=== PATIENT | male | born 1985 | race Two or more races ===

== ENCOUNTER 2016-02-07 23:19 | Emergency (ER) | payer SELFPAY ==
[2016-02-08] MEDS ORDERED: ALBUTEROL SULFATE HFA (90 MCG/PUFF) 8 GM MDI (1 MDI/ER DISP) IH ONE (03:39)
--- NOTE | 2016-02-08 03:42 | ER Document Report ---
HPI - HPI Patient complains to provider of: wheezing Pain Level: 0 Context: Patient is a 22-year-old asthmatic smoker that comes emergency department for chief complaint of wheezing earlier today. Patient states that he feels fine now but he left his inhaler and [place] before coming here, states his stay here tonight and going back tomorrow, states he needs an inhaler until that time. Patient denies fever, cough, or any other concerns. Patient denies any other history. - CARDIOVASCULAR Cardiovascular: DENIES: Chest pain - RESPIRATORY Respiratory: REPORTS: Trouble Breathing - DERM Skin Color: Normal, [place] Skin Problems: None - NURSING COMMENTS Comment: pt to ed today for SOB, pt states it started around 1999, pt states he left his inhaler at home and is staying in a hotel at this time and needs an inhaler, pt is a&o x4, pleasant and cooperative with all care, respirations e/u , speech clear, color appropriate, nad, vss Past Medical History - General Information source: Patient - Social History Smoking Status: Current Every Day Smoker Cigarette use (# per day): Yes Chew tobacco use (# tins/day): No Smoking Education Provided: Yes - <3 min Frequency of alcohol use: None Drug Abuse: None Lives with: Alone Family History: Reviewed & Not Pertinent - Past Medical History Cardiac Medical History: Denies: Hx Coronary Artery Disease, Hx Hypertension, Hx Pulmonary Embolism Pulmonary Medical History: Reports: Hx Asthma, Hx Bronchitis, Hx Pneumonia Denies: Hx Respiratory Failure, Hx Sleep Apnea, Hx Tuberculosis Endocrine Medical History: Denies: Hx Diabetes Mellitus Type 1, Hx Diabetes Mellitus Type 2 Malignancy Medical History: Denies Hx Lung Cancer Psychiatric Medical History: Reports: Hx Attention Deficit Hyperactivity Disorder Denies: Hx Anxiety, Hx Bipolar Disorder, Hx Depression, Hx Schizophrenia Past Surgical History: Reports: Hx Tonsillectomy. Denies: Hx Pacemaker - Immunizations Immunizations up to date: Yes Hx Diphtheria, Pertussis, Tetanus Vaccination: Yes Vertical Provider Document - CONSTITUTIONAL General Appearance: WD/WN, No Apparent Distress - INFECTION CONTROL TRAVEL OUTSIDE OF THE [place] IN LAST 30 DAYS: No - HEENT HEENT: Atraumatic, Normal ENT Exam - NECK Neck: Normal Inspection - RESPIRATORY Respiratory: Breath Sounds Normal, No Respiratory Distress O2 Sat by Pulse Oximetry: 98 - CARDIOVASCULAR Cardiovascular: Regular Rate, Regular Rhythm - GI/ABDOMEN Gastrointestinal: Abdomen Soft, Abdomen Non-Tender - BACK Back: Normal Inspection - MUSCULOSKELETAL/EXTREMETIES Musculoskeletal/Extremeties: MAEW, FROM, Non-Tender - NEURO Level of Consciousness: Awake, Alert, Appropriate - DERM Integumentary: Warm, Dry, No Rash Course - Re-evaluation Re-evalutation: Completely normal exam. Normal vital signs. Patient recently received a prescription from this department for albuterol inhaler. Patient given small limited dose inhaler at discharge. Discussed smoking cessation, patient states he understands he needs to quit and he will try. - Vital Signs Vital signs: Temp Pulse Resp BP Pulse Ox 97.8 F 81 12 131/71 H 98 02/07/16 23:35 02/07/16 23:35 02/07/16 23:35 02/07/16 23:35 02/07/16 23:35 Discharge - Discharge Clinical Impression: Asthma Qualifiers: Asthma severity: unspecified severity Asthma complication type: uncomplicated Qualified Code(s): J45.909 - Unspecified asthma, uncomplicated Condition: Stable Disposition: HOME, SELF-CARE Additional Instructions: Fill the prescribed albuterol inhaler prescription that you were given recently. Stop smoking. Return to emergency department for difficulty breathing, wheezing, fevers, or any other concerning symptoms. Forms: Smoking Cessation Education
[2016-02-08 03:59] VITALS: BP 117/60
== END 2016-02-08 03:59 | disposition home or self-care (01) ==
LOC: ER 23:19
DX: J45.909 Unspecified asthma, uncomplicated (principal); R06.02 Shortness of breath; F17.210 Nicotine dependence, cigarettes, uncomplicated; Z71.6 Tobacco abuse counseling; Z87.01 Personal history of pneumonia (recurrent)
CPT/HCPCS: 99284; J3490

== ENCOUNTER 2016-02-10 21:47 | Emergency (ER) | payer SELFPAY | END 2016-02-10 22:43 | disposition left against medical advice (07) | LOC: ER 21:47 | DX: Z53.21 Procedure and treatment not carried out due to patient leaving prior to being seen by health care provider (principal) ==

== ENCOUNTER 2016-02-11 00:33 | Emergency (ER) | payer SELFPAY ==
[2016-02-11 01:20] VITALS: BP 130/72
[2016-02-11 04:42] LABS: APPEARANCE,URINE CLEAR; BILIRUBIN,URINE NEGATIVE (NEGATIVE); GLUCOSE, URINE NEGATIVE (NEGATIVE); KETONES,URINE NEGATIVE (NEGATIVE); LEUKOCYTE ESTERASE,URINE NEGATIVE (NEGATIVE); NITRITE,URINE NEGATIVE (NEGATIVE); PROTEIN,URINE NEGATIVE (NEGATIVE); URINE SPECIFIC GRAVITY 1.015; UROBILINOGEN,URINE NEGATIVE mg/dL (<2.0)
--- NOTE | 2016-02-11 06:29 | ER Document Report ---
ED General - General Chief Complaint: Nausea Stated Complaint: NAUSEA TRAVEL OUTSIDE OF THE [place] IN LAST 30 DAYS: No - HPI Patient complains to provider of: nausea Onset: Other - 2-3 days Onset/Duration: Gradual Quality of pain: No pain Severity: None Associated symptoms: None Exacerbated by: Denies Relieved by: Denies Similar symptoms previously: No Recently seen / treated by doctor: No Notes: Patient coming in for evaluation of nausea. Patient also states that he is having a bowel issue. Patient states when he states sometimes the food comes alcohol and his stools very loose and watery. Patient denies diarrhea. Patient states is been ongoing for quite some time. States nausea last to 3 days. No fevers and chills no recent travel no recent antibiotics - Related Data Allergies/Adverse Reactions: poison veronica extract [Poison Veronica Extract] Allergy (Verified 02/02/16 13:47) poison oak extract [Poison [place] Extract] Allergy (Verified 02/02/16 13:47) Past Medical History - Social History Smoking Status: Current Every Day Smoker Chew tobacco use (# tins/day): No Frequency of alcohol use: None Drug Abuse: None Family History: Reviewed & Not Pertinent Patient has suicidal ideation: No Patient has homicidal ideation: No - Past Medical History Cardiac Medical History: Denies: Hx Coronary Artery Disease, Hx Hypertension, Hx Pulmonary Embolism Pulmonary Medical History: Reports: Hx Asthma, Hx Bronchitis, Hx COPD, Hx Pneumonia Denies: Hx Respiratory Failure, Hx Sleep Apnea, Hx Tuberculosis Endocrine Medical History: Denies: Hx Diabetes Mellitus Type 1, Hx Diabetes Mellitus Type 2 Malignancy Medical History: Denies Hx Lung Cancer Psychiatric Medical History: Reports: Hx Attention Deficit Hyperactivity Disorder Denies: Hx Anxiety, Hx Bipolar Disorder, Hx Depression, Hx Schizophrenia Past Surgical History: Reports: Hx Tonsillectomy. Denies: Hx Pacemaker - Immunizations Immunizations up to date: Yes Hx Diphtheria, Pertussis, Tetanus Vaccination: Yes Review of Systems - Review of Systems Constitutional: No symptoms reported EENT: No symptoms reported Cardiovascular: No symptoms reported Respiratory: No symptoms reported Gastrointestinal: Nausea, Other - Bowel complaint Genitourinary: No symptoms reported Male Genitourinary: No symptoms reported Musculoskeletal: No symptoms reported Skin: No symptoms reported Hematologic/Lymphatic: No symptoms reported Neurological/Psychological: No symptoms reported -: Yes All other systems reviewed and negative Physical Exam - Vital signs Vitals: Temp Pulse Resp BP Pulse Ox 98.3 F 92 18 130/72 H 96 02/11/16 01:19 02/11/16 01:19 02/11/16 01:19 02/11/16 01:02/11/16 01:19 Interpretation: Normal - General General appearance: Appears well, Alert - HEENT Head: Normocephalic, Atraumatic Eyes: Normal Pupils: PERRL - Respiratory Respiratory status: No respiratory distress Chest status: Nontender Breath sounds: Normal Chest palpation: Normal - Cardiovascular Rhythm: Regular Heart sounds: Normal auscultation Murmur: No - Abdominal Inspection: Normal Distension: No distension Bowel sounds: Normal Tenderness: Nontender Organomegaly: No organomegaly - Back Back: Normal, Nontender - Extremities General upper extremity: Normal inspection, Nontender, Normal color, Normal ROM , Normal temperature General lower extremity: Normal inspection, Nontender, Normal color, Normal ROM , Normal temperature, Normal weight bearing. No: Kush's sign - Neurological Neuro grossly intact: Yes Cognition: Normal Orientation: AAOx4 Paula Coma Scale Eye Opening: Spontaneous [place]elin Coma Scale Verbal: Oriented Paula Coma Scale Motor: Obeys Commands Paula Coma Scale Total: 15 Speech: Normal Motor strength normal: LUE, RUE, LLE, RLE Sensory: Normal - Psychological Associated symptoms: Normal affect, Normal mood - Skin Skin Temperature: Warm Skin Moisture: Dry Skin Color: Normal Course - Re-evaluation Re-evalutation: 02/11/16 15:21 The patient presents with abdominal pain without signs of peritonitis or other life-threatening or serious etiology. The patient appears stable for discharge and has been instructed to return immediately if the symptoms worsen in any way , or in 8-12hr if not improved for re-evaluation. The patient has been instructed to return if the symptoms worsen or change in any way.. - Vital Signs Vital signs: Temp Pulse Resp BP Pulse Ox 98.3 F 92 18 130/72 H 96 02/11/16 01:19 02/11/16 01:19 02/11/16 01:19 02/11/16 01:19 02/11/16 01:19 Discharge - Discharge Clinical Impression: Nausea, bowel complaints Condition: Good Disposition: HOME, SELF-CARE Instructions: Gastroenteritis (adult) ([facility]) Prescriptions: Ondansetron [Zofran Odt 4 mg Tablet] 1 - 2 tab PO Q4H PRN #15 tab.rapdis PRN Reason: For Nausea/Vomiting
== END 2016-02-11 06:27 | disposition home or self-care (01) ==
LOC: ER 00:33
DX: R11.0 Nausea (principal); R10.9 Unspecified abdominal pain; F17.210 Nicotine dependence, cigarettes, uncomplicated
CPT/HCPCS: 81001; 99283

== ENCOUNTER 2016-02-12 04:59 | Emergency (ER) | payer SELFPAY ==
[2016-02-12] MEDS ORDERED: IBUPROFEN 600 MG TABLET PO ONE (07:21)
--- NOTE | 2016-02-12 07:21 | ER Document Report ---
HPI - HPI Patient complains to provider of: muscle aches Onset: This morning Pain Level: 5 Context: 30-year-old male who admits to being homeless and that's why came to the emergency room he needed a place to sleep and he wanted some Motrin for his muscle pain. He was couch surfing and has not had any place to sleep for the past 2 nights. The review of systems besides generalized so pain is negative. No fever or chills. No sore throat runny nose or cough. No chest pain or shortness of breath. No nausea vomiting or diarrhea. No abdominal pain. No dysuria frequency or urgency. No rash. Associated Symptoms: None Exacerbated by: Denies Relieved by: Denies - ROS ROS below otherwise negative: Yes Systems Reviewed and Negative: Yes All other systems reviewed and negative - CARDIOVASCULAR Cardiovascular: DENIES: Chest pain - DERM Skin Color: Normal Past Medical History - General Information source: Patient - Social History Smoking Status: Current Every Day Smoker Chew tobacco use (# tins/day): No Frequency of alcohol use: None Drug Abuse: None Lives with: Homeless Family History: None Patient has suicidal ideation: No Patient has homicidal ideation: No Pulmonary Medical History: Reports: Hx Asthma, Hx Bronchitis, Hx COPD, Hx Pneumonia Psychiatric Medical History: Reports: Hx Attention Deficit Hyperactivity Disorder Past Surgical History: Reports: Hx Tonsillectomy - Immunizations Immunizations up to date: Yes Hx Diphtheria, Pertussis, Tetanus Vaccination: Yes Vertical Provider Document - CONSTITUTIONAL Agree With Documented VS: Yes Exam Limitations: No Limitations - INFECTION CONTROL TRAVEL OUTSIDE OF THE [place] IN LAST 30 DAYS: No - HEENT HEENT: Normal ENT Exam - NECK Neck: Supple. negative: Lymphadenopathy-Left, Lymphadenopathy-Right - RESPIRATORY Respiratory: Breath Sounds Normal, No Respiratory Distress O2 Sat by Pulse Oximetry: 98 - CARDIOVASCULAR Cardiovascular: Regular Rate, Regular Rhythm - GI/ABDOMEN Gastrointestinal: Abdomen Soft, Abdomen Non-Tender, No Organomegaly - BACK Back: Normal Inspection - MUSCULOSKELETAL/EXTREMETIES Musculoskeletal/Extremeties: SERGIO PEPPER - NEURO Level of Consciousness: Awake, Alert Motor/Sensory: No Motor Deficit, No Sensory Deficit - DERM Integumentary: Warm, Dry Course - Vital Signs Vital signs: Temp Pulse Resp BP Pulse Ox 97.4 F 71 18 116/68 98 02/12/16 05:02 02/12/16 05:02 02/12/16 05:02 02/12/16 05:02 02/12/16 05:02 Discharge - Discharge Clinical Impression: Myalgia Condition: Good Disposition: HOME, SELF-CARE Instructions: Use of Embi-Yga-Rfzzdyk Ibuprofen ([facility]), Myalagia (Muscle Pain) ( [facility]), [facility], Family Physicians / Practices Additional Instructions: return to emergency room if worse referral to homeless [facility] so you have someplace to sleep
[2016-02-12 08:39] VITALS: BP 103/68
== END 2016-02-12 07:50 | disposition home or self-care (01) ==
LOC: ER 04:59
DX: M79.1 Myalgia (principal); Z59.0 Homelessness; F17.200 Nicotine dependence, unspecified, uncomplicated; J45.909 Unspecified asthma, uncomplicated; J44.9 Chronic obstructive pulmonary disease, unspecified
CPT/HCPCS: 99283

== ENCOUNTER 2016-02-16 16:01 | Emergency (ER) | payer SELFPAY ==
--- NOTE | 2016-02-16 16:12 | ER Document Report ---
ED Medical Screen (RME) - General Stated Complaint: SHORTNESS OF BREATH,COUGH Time seen by provider: 16:11 Mode of Arrival: Ambulatory Information source: Patient Notes: 30-year-old male had unprotected intercourse with a female and wants to know if he can get antibiotics. He has no penile discharge or burning. He ran out of his inhaler and he feels like he can't breathe all day. Vital signs are stable in triage. TRAVEL OUTSIDE OF THE [place] IN LAST 30 DAYS: No - Related Data Allergies/Adverse Reactions: poison veronica extract [Poison Veronica Extract] Allergy (Verified 02/12/16 05:02) poison oak extract [Poison [place] Extract] Allergy (Verified 02/12/16 05:02) Past Medical History - Social History Family history: None. denies: CAD - Past Medical History Cardiac Medical History: Denies: Hx Coronary Artery Disease, Hx Hypertension, Hx Pulmonary Embolism Pulmonary Medical History: Reports: Hx Asthma, Hx Bronchitis, Hx COPD, Hx Pneumonia Denies: Hx Respiratory Failure, Hx Sleep Apnea, Hx Tuberculosis Endocrine Medical History: Denies: Hx Diabetes Mellitus Type 1, Hx Diabetes Mellitus Type 2 Malignancy Medical History: Denies Hx Lung Cancer Psychiatric Medical History: Reports: Hx Attention Deficit Hyperactivity Disorder Denies: Hx Anxiety, Hx Bipolar Disorder, Hx Depression, Hx Schizophrenia Past Surgical History: Reports: Hx Tonsillectomy. Denies: Hx Pacemaker - Immunizations Immunizations up to date: Yes Hx Diphtheria, Pertussis, Tetanus Vaccination: Yes Physical Exam - Vital signs Vitals: Temp Pulse Resp BP Pulse Ox 98.1 F 86 16 131/74 H 100 02/16/16 16:09 02/16/16 16:09 02/16/16 16:09 02/16/16 16:09 02/16/16 16:09 Course - Vital Signs Vital signs: Temp Pulse Resp BP Pulse Ox 98.1 F 86 16 131/74 H 100 02/16/16 16:09 02/16/16 16:09 02/16/16 16:09 02/16/16 16:09 02/16/16 16:09
[2016-02-16] MEDS ORDERED: ALBUTEROL SULFATE HFA (90 MCG/PUFF) 8 GM MDI (1 MDI/ER DISP) IH ONE (18:01)
--- NOTE | 2016-02-16 18:12 | ER Document Report ---
ED General - General Chief Complaint: STD Exposure Stated Complaint: SHORTNESS OF BREATH,COUGH Mode of Arrival: Ambulatory Information source: Patient Notes: 30-year-old male presents to the emergency department requesting an albuterol inhaler and testing for possible STI exposure. Patient reports he kissed a female approximately 3 days ago and is concerned he may have gotten herpes. Patient states she did not have intercourse and partner did not notify him if she has a history of herpes however he is concerned at this time although he is asymptomatic. Also reports has a history of asthma which she states flares up at night and does not have an albuterol inhaler. This is patient's fifth ED visit within the last 10 days most of them for similar symptoms. Has received 2 albuterol inhalers but states has misplaced them. Denies fever, chest pain, nausea or vomiting, shortness of breath, dysuria, or penile discharge. TRAVEL OUTSIDE OF THE [place] IN LAST 30 DAYS: No - HPI Severity: None Similar symptoms previously: Yes Recently seen / treated by doctor: Yes - Related Data Allergies/Adverse Reactions: poison veronica extract [Poison Veronica Extract] Allergy (Verified 02/12/16 05:02) poison oak extract [Poison [place] Extract] Allergy (Verified 02/12/16 05:02) Past Medical History - General Information source: Patient - Social History Smoking Status: Smoker,Current Status Unk Frequency of alcohol use: None Drug Abuse: None Lives with: Homeless Family History: Reviewed & Not Pertinent Patient has suicidal ideation: No Patient has homicidal ideation: No - Past Medical History Cardiac Medical History: Denies: Hx Coronary Artery Disease, Hx Hypertension, Hx Pulmonary Embolism Pulmonary Medical History: Reports: Hx Asthma, Hx Bronchitis, Hx COPD, Hx Pneumonia Denies: Hx Respiratory Failure, Hx Sleep Apnea, Hx Tuberculosis Endocrine Medical History: Denies: Hx Diabetes Mellitus Type 1, Hx Diabetes Mellitus Type 2 Malignancy Medical History: Denies Hx Lung Cancer Psychiatric Medical History: Reports: Hx Attention Deficit Hyperactivity Disorder Denies: Hx Anxiety, Hx Bipolar Disorder, Hx Depression, Hx Schizophrenia Past Surgical History: Reports: Hx Tonsillectomy. Denies: Hx Pacemaker - Immunizations Immunizations up to date: Yes Hx Diphtheria, Pertussis, Tetanus Vaccination: Yes Review of Systems - Review of Systems Constitutional: No symptoms reported EENT: No symptoms reported Cardiovascular: No symptoms reported Respiratory: See HPI Gastrointestinal: No symptoms reported Genitourinary: No symptoms reported Male Genitourinary: No symptoms reported Musculoskeletal: No symptoms reported Skin: No symptoms reported Hematologic/Lymphatic: No symptoms reported Neurological/Psychological: No symptoms reported -: Yes All other systems reviewed and negative Physical Exam - Vital signs Vitals: Temp Pulse Resp BP Pulse Ox 98.1 F 86 16 131/74 H 100 02/16/16 16:09 02/16/16 16:09 02/16/16 16:09 02/16/16 16:09 02/16/16 16:09 Interpretation: Normal - General General appearance: Appears well, Alert In distress: None - HEENT Head: Normocephalic, Atraumatic Eyes: Normal Pupils: PERRL Sinus: Normal Nasal: Normal Mouth/Lips: Normal Mucous membranes: Normal, Moist Pharynx: Normal. No: Blood in hypopharynx, Erythema, Exudate, Peritonsillar abscess, Post nasal drainage, Retropharyngeal abscess, Tonsillar hypertrophy, Uvular edema, Potential airway comprom., Other Neck: Normal. No: Anterior cervical chain, Posterior cervical chain, Lymphadenopathy, Meningismus, Subcutaneous emphysema - Respiratory Respiratory status: No respiratory distress Chest status: Nontender Breath sounds: Normal. No: Rhonchi, Wheezing Chest palpation: Normal - Cardiovascular Rhythm: Regular Heart sounds: Normal auscultation Murmur: No Pulses: Normal: Radial Normal capillary refill: Yes - Abdominal Inspection: Normal Distension: No distension Bowel sounds: Normal Tenderness: Nontender Organomegaly: No organomegaly - Back Back: Normal, Nontender - Extremities General upper extremity: Normal inspection, Nontender, Normal color, Normal ROM , Normal temperature General lower extremity: Normal inspection, Nontender, Normal color, Normal ROM , Normal temperature, Normal weight bearing - Neurological Neuro grossly intact: Yes Cognition: Normal Orientation: AAOx4 Paula Coma Scale Eye Opening: Spontaneous Paula Coma Scale Verbal: Oriented Paula Coma Scale Motor: Obeys Commands Paula Coma Scale Total: 15 Speech: Normal Motor strength normal: LUE, RUE, LLE, RLE Sensory: Normal - Psychological Associated symptoms: Normal affect, Normal mood - Skin Skin Temperature: Warm Skin Moisture: Dry Skin Color: Normal Course - Re-evaluation Re-evalutation: 02/16/16 18:14 Patient hemodynamically stable, in no distress, afebrile, very well-appearing. No suggestion illness or emergent etiology at this time. Chlamydia and gonorrhea screen was done in [facility] pending results. Patient will be discharged prior to results as his reported history does not suggest exposure to chlamydia and/or gonorrhea. Discussed with patient if results happen to come back positive we will contact him with instructions on treatment. Albuterol inhaler dispensed in ED with instructions on use. Discharge instructions including homecare, follow-up, and ED return precautions discussed with patient who verbalized understanding and agrees with plan. - Vital Signs Vital signs: Temp Pulse Resp BP Pulse Ox 98.7 F 79 16 123/82 98 02/16/16 18:26 02/16/16 18:26 02/16/16 18:26 02/16/16 18:26 02/16/16 18:26 Discharge - Discharge Clinical Impression: Asthma Qualifiers: Asthma severity: unspecified severity Asthma complication type: uncomplicated Qualified Code(s): J45.909 - Unspecified asthma, uncomplicated Condition: Stable Disposition: HOME, SELF-CARE Instructions: Asthma ([facility]), Inhaled Bronchodilators ([facility]) Additional Instructions: Follow-up with your primary care provider this week. Return to the emergency department for any worsening symptoms or concerns. Forms: Elevated Blood Pressure Referrals: [facility] [Provider Group] - Follow up tomorrow
[2016-02-16 18:28] VITALS: BP 123/82
[2016-02-16 18:29] LABS: CHLAM PCR NOT DETECTED (NOT DETECT)
== END 2016-02-16 18:28 | disposition home or self-care (01) ==
LOC: ER 16:01
DX: Z20.2 Contact with and (suspected) exposure to infections with a predominantly sexual mode of transmission (principal); J45.909 Unspecified asthma, uncomplicated; J44.9 Chronic obstructive pulmonary disease, unspecified; Z87.01 Personal history of pneumonia (recurrent)
CPT/HCPCS: 99283; 87491; 87591; J3490

== ENCOUNTER 2016-02-17 20:42 | Emergency (ER) | payer SELFPAY ==
[2016-02-17] MEDS ORDERED: ONDANSETRON 4 MG TAB.RAPDIS PO ONE (21:41)
--- NOTE | 2016-02-17 21:41 | ER Document Report ---
ED Medical Screen (RME) - General Stated Complaint: WEAKNESS Notes: 30 yo male c/o flu like symptoms. + fever, body aches, cough, + nausea. symptoms x 1 day TRAVEL OUTSIDE OF THE [place] IN LAST 30 DAYS: No - Related Data Allergies/Adverse Reactions: poison veronica extract [Poison [place]onica Extract] Allergy (Verified 02/12/16 05:02) poison oak extract [Poison [place] Extract] Allergy (Verified 02/12/16 05:02) Past Medical History - Social History Family history: None. denies: CAD - Past Medical History Cardiac Medical History: Denies: Hx Coronary Artery Disease, Hx Hypertension, Hx Pulmonary Embolism Pulmonary Medical History: Reports: Hx Asthma, Hx Bronchitis, Hx COPD, Hx Pneumonia Denies: Hx Respiratory Failure, Hx Sleep Apnea, Hx Tuberculosis Endocrine Medical History: Denies: Hx Diabetes Mellitus Type 1, Hx Diabetes Mellitus Type 2 Malignancy Medical History: Denies Hx Lung Cancer Psychiatric Medical History: Reports: Hx Attention Deficit Hyperactivity Disorder Denies: Hx Anxiety, Hx Bipolar Disorder, Hx Depression, Hx Schizophrenia Past Surgical History: Reports: Hx Tonsillectomy. Denies: Hx Pacemaker - Immunizations Immunizations up to date: Yes Hx Diphtheria, Pertussis, Tetanus Vaccination: Yes
--- NOTE | 2016-02-18 02:11 | ER Document Report ---
ED Flu Like - General Chief Complaint: Flu Symptoms Stated Complaint: WEAKNESS Mode of Arrival: Ambulatory Information source: Patient Notes: Patient is a 30-year-old homeless male who presents to the ER today for nausea and vomiting that began today. He denies any abdominal pain, fever, chills, cough, runny nose. He states that he is worried about gonorrhea and chlamydia as he had sex that was unprotected but he denies any penile discharge, itching, rash, difficulty urinating, hematuria. TRAVEL OUTSIDE OF THE [place] IN LAST 30 DAYS: No - Related Data Allergies/Adverse Reactions: poison veronica extract [Poison [place] Extract] Allergy (Verified 02/12/16 05:02) poison oak extract [Poison [place] Extract] Allergy (Verified 02/12/16 05:02) Past Medical History - General Information source: Patient - Social History Smoking Status: Unknown if Ever Smoked Family History: Reviewed & Not Pertinent Patient has suicidal ideation: No Patient has homicidal ideation: No - Past Medical History Cardiac Medical History: Denies: Hx Coronary Artery Disease, Hx Hypertension, Hx Pulmonary Embolism Pulmonary Medical History: Reports: Hx Asthma, Hx Bronchitis, Hx COPD, Hx Pneumonia Denies: Hx Respiratory Failure, Hx Sleep Apnea, Hx Tuberculosis Endocrine Medical History: Denies: Hx Diabetes Mellitus Type 1, Hx Diabetes Mellitus Type 2 Renal/ Medical History: Denies: Hx Peritoneal Dialysis Malignancy Medical History: Denies Hx Lung Cancer Psychiatric Medical History: Reports: Hx Attention Deficit Hyperactivity Disorder Denies: Hx Anxiety, Hx Bipolar Disorder, Hx Depression, Hx Schizophrenia Past Surgical History: Reports: Hx Tonsillectomy. Denies: Hx Pacemaker - Immunizations Immunizations up to date: Yes Hx Diphtheria, Pertussis, Tetanus Vaccination: Yes Review of Systems - Review of Systems Constitutional: No symptoms reported EENT: No symptoms reported Cardiovascular: No symptoms reported Respiratory: No symptoms reported Gastrointestinal: See HPI Genitourinary: See HPI Male Genitourinary: See HPI Musculoskeletal: No symptoms reported Skin: No symptoms reported Hematologic/Lymphatic: No symptoms reported Neurological/Psychological: No symptoms reported Physical Exam - Notes Notes: PHYSICAL EXAMINATION: GENERAL: Well-appearing, sleeping and in no acute distress. HEAD: Atraumatic, normocephalic. EYES: Pupils equal round and reactive to light, extraocular movements intact, sclera anicteric, conjunctiva are normal. ENT: ear canals without erythema or foreign body, TMs pearly bianchi with good bony landmarks, nares patent, oropharynx clear without exudates. Moist mucous membranes. NECK: Normal range of motion, supple without lymphadenopathy LUNGS: CTAB and equal. No wheezes rales or rhonchi. HEART: Regular rate and rhythm without murmurs ABDOMEN: Soft, no tenderness. No guarding, no rebound BACK: no vertebral tenderness, normal ROM GI/: no CVA tenderness EXTREMITIES: Normal range of motion, no pitting edema. No cyanosis. NEUROLOGICAL: Cranial nerves grossly intact. Normal sensory/motor exams. PSYCH: Normal mood, normal affect. SKIN: Warm, Dry, normal turgor, no rashes or lesions noted Course - Re-evaluation Re-evalutation: 02/18/16 02:51 Patient is here daily at times as he is homeless and asked for drink and food when he comes. Patient was given nausea medication here as he complains of nausea and vomiting today. Gonorrhea and Chlamydia were negative yesterday, I see no reason to get this test again today as he has no symptoms. He was sent home with a bottle of nausea medication from the emergency department. He did not vomit here and had normal vital signs. Discharge - Discharge Clinical Impression: Nausea Condition: Stable Disposition: HOME, SELF-CARE Additional Instructions: Return immediately for any new or worsening symptoms. Follow up with primary care provider, call tomorrow to make followup appointment.
[2016-02-18] MEDS ORDERED: ONDANSETRON ODT 4 MG TAB (6 TAB/DSPK) PO PRN (02:52)
[2016-02-18 03:13] VITALS: BP 129/77
== END 2016-02-18 03:35 | disposition home or self-care (01) ==
LOC: ER 20:42
DX: R11.2 Nausea with vomiting, unspecified (principal); R53.1 Weakness; J44.9 Chronic obstructive pulmonary disease, unspecified; J45.909 Unspecified asthma, uncomplicated; Z91.048 Other nonmedicinal substance allergy status; Z59.0 Homelessness
CPT/HCPCS: 99283; S0119

== ENCOUNTER 2016-02-20 19:55 | Emergency (ER) | payer SELFPAY ==
[2016-02-20 20:03] VITALS: BP 135/75
--- NOTE | 2016-02-20 20:21 | ER Document Report ---
ED General - General Chief Complaint: STD Exposure Stated Complaint: WEAKNESS Notes: The patient is a 30-year-old homeless male, past medical history asthma, presents with a request for a herpes blood test. He said he kissed a girl a week ago and is concerned that he has an STD. He did not have intercourse. He was having mild nausea yesterday and took his Zofran, but denies any nausea or vomiting today. He comes to the emergency frequently for similar complaints. He denies penile discharge, rash, mouth pain, fevers, flank pain or urinary symptoms. TRAVEL OUTSIDE OF THE [place] IN LAST 30 DAYS: No - Related Data Allergies/Adverse Reactions: poison veronica extract [Poison Veronica Extract] Allergy (Verified 02/12/16 05:02) poison oak extract [Poison [place] Extract] Allergy (Verified 02/12/16 05:02) Past Medical History - General Information source: Patient - Social History Smoking Status: Unknown if Ever Smoked Family History: Reviewed & Not Pertinent - Past Medical History Cardiac Medical History: Denies: Hx Coronary Artery Disease, Hx Hypertension, Hx Pulmonary Embolism Pulmonary Medical History: Reports: Hx Asthma, Hx Bronchitis, Hx COPD, Hx Pneumonia Denies: Hx Respiratory Failure, Hx Sleep Apnea, Hx Tuberculosis Endocrine Medical History: Denies: Hx Diabetes Mellitus Type 1, Hx Diabetes Mellitus Type 2 Renal/ Medical History: Denies: Hx Peritoneal Dialysis Malignancy Medical History: Denies Hx Lung Cancer Psychiatric Medical History: Reports: Hx Attention Deficit Hyperactivity Disorder Denies: Hx Anxiety, Hx Bipolar Disorder, Hx Depression, Hx Schizophrenia Past Surgical History: Reports: Hx Tonsillectomy. Denies: Hx Pacemaker - Immunizations Immunizations up to date: Yes Hx Diphtheria, Pertussis, Tetanus Vaccination: Yes Review of Systems - Review of Systems Notes: REVIEW OF SYSTEMS: CONSTITUTIONAL: -fevers, -chills EENT: -eye pain, -difficulty swallowing, -nasal congestion CARDIOVASCULAR:-chest pain, -syncope. RESPIRATORY: -cough, -SOB GASTROINTESTINAL: -abdominal pain, - nausea, -vomiting, -diarrhea GENITOURINARY: -dysuria, -hematuria MUSCULOSKELETAL: -back pain, -neck pain SKIN: -rash or skin lesions. HEMATOLOGIC: -easy bruising or bleeding. LYMPHATIC: -swollen, enlarged glands. NEUROLOGICAL: -altered mental status or loss of consciousness, -headache, - neurologic symptoms PSYCHIATRIC: -anxiety, -depression. ALL OTHER SYSTEMS REVIEWED AND NEGATIVE. Physical Exam - Vital signs Vitals: Temp Pulse Resp BP Pulse Ox 99.4 F 75 16 135/75 H 100 02/20/16 20:01 02/20/16 20:02/20/16 20:02/20/16 20:01 02/20/16 20:01 - Notes Notes: PHYSICAL EXAMINATION: GENERAL: Well-appearing, well-nourished and in no acute distress. HEAD: Atraumatic, normocephalic. EYES: Pupils equal round and reactive to light, extraocular movements intact, sclera anicteric, conjunctiva are normal. ENT: nares patent, oropharynx clear without exudates. Moist mucous membranes. NECK: Normal range of motion, supple without lymphadenopathy LUNGS: Breath sounds clear to auscultation bilaterally and equal. No wheezes rales or rhonchi. HEART: Regular rate and rhythm without murmurs ABDOMEN: Soft, nontender, normoactive bowel sounds. No guarding, no rebound. No masses appreciated. : No rash or penile discharge. Nontender testicles. EXTREMITIES: Normal range of motion, no pitting or edema. No cyanosis. NEUROLOGICAL: Cranial nerves grossly intact. Normal speech, normal gait. Normal sensory, motor, and reflex exams. PSYCH: Normal mood, normal affect. SKIN: Warm, Dry, normal turgor, no rashes or lesions noted. Course - Re-evaluation Re-evalutation: No evidence of herpes at this time. Patient seen here multiple times in the emergency room for similar complaints. He always request food and drink. Gave him drinks today and he is keeping it down without nausea or vomiting. No emergent condition identified at this time. - Vital Signs Vital signs: Temp Pulse Resp BP Pulse Ox 99.4 F 75 16 135/75 H 100 02/20/16 20:01 02/20/16 20:01 02/20/16 20:02/20/16 20:01 02/20/16 20:01 Discharge - Discharge Clinical Impression: Worried well Condition: Good Disposition: HOME, SELF-CARE Additional Instructions: NORMAL EXAM AND WORKUP: At this time, your examination and workup show no significant abnormality. No significant abnormal physical findings were noted. All laboratory, EKG, and imaging (x-ray, CT scans, ultrasound) studies that were ordered show no significant abnormality. Although your examination and all studies that were ordered showed no significant abnormal finding, there are no examinations and no studies that are 100% accurate. There is always the possibility that some abnormality could exist and not be detected with physical examination or within the limits and capabilities of laboratory and other studies. You should return or follow up as you were instructed on your visit today for further evaluation if your symptoms do not resolve.
== END 2016-02-20 20:40 | disposition home or self-care (01) ==
LOC: ER 19:55
DX: Z71.1 Person with feared health complaint in whom no diagnosis is made (principal); Z59.0 Homelessness; R11.0 Nausea; J44.9 Chronic obstructive pulmonary disease, unspecified
CPT/HCPCS: 99284

== ENCOUNTER 2016-02-28 02:37 | Emergency (ER) | payer SELFPAY ==
[2016-02-28 02:59] VITALS: BP 124/67
== END 2016-02-28 05:57 | disposition left against medical advice (07) ==
LOC: ER 02:37
DX: Z53.21 Procedure and treatment not carried out due to patient leaving prior to being seen by health care provider (principal)

== ENCOUNTER 2016-02-28 08:33 | Emergency (ER) | payer SELFPAY ==
[2016-02-28 08:40] VITALS: BP 104/91
[2016-02-28] MEDS ORDERED: ALBUTEROL SULFATE HFA (90 MCG/PUFF) 8 GM MDI (1 MDI/ER DISP) IH ONE (10:26)
[2016-02-28] MEDS ORDERED: ACETAMINOPHEN 325 MG TABLET PO ONE (10:26)
--- NOTE | 2016-02-28 10:29 | ER Document Report ---
HPI - HPI Patient complains to provider of: headache, lost inhaler Onset: Other Quality of pain: Achy Pain Level: 5 Context: Patient presents to the ED with c/o headache and he lost his inhaler, history of asthma. Patient also talks about vague stomach complaints reports he feels bloated after he eats. Patient is requesting medication for diarrhea but denies having diarrhea. Patient reports he lost his inhaler with a history of asthma. Patient also reports that he needs some Tylenol because he may have a headache. Patient reports that he is homeless at this time. He reports [facility] and has a plan they will help him find a place to live. He denies fever vomiting diarrhea. Patient looks nontoxic, no c/o suicidal or homicidal thoughts, is calm and answers all questions appropriately. Associated Symptoms: None Exacerbated by: Denies Relieved by: Denies Similar symptoms previously: Yes Recently seen / treated by doctor: Yes - DERM Skin Color: Normal Past Medical History - General Information source: Patient - Social History Smoking Status: Never Smoker Cigarette use (# per day): No Frequency of alcohol use: None Drug Abuse: None Lives with: Homeless Family History: Reviewed & Not Pertinent Patient has suicidal ideation: No Patient has homicidal ideation: No - Past Medical History Cardiac Medical History: Denies: Hx Coronary Artery Disease, Hx Hypertension, Hx Pulmonary Embolism Pulmonary Medical History: Reports: Hx Asthma, Hx Bronchitis, Hx COPD, Hx Pneumonia Denies: Hx Respiratory Failure, Hx Sleep Apnea, Hx Tuberculosis Endocrine Medical History: Denies: Hx Diabetes Mellitus Type 1, Hx Diabetes Mellitus Type 2 Renal/ Medical History: Denies: Hx Peritoneal Dialysis Malignancy Medical History: Denies Hx Lung Cancer Psychiatric Medical History: Reports: Hx Attention Deficit Hyperactivity Disorder Denies: Hx Anxiety, Hx Bipolar Disorder, Hx Depression, Hx Schizophrenia Past Surgical History: Reports: Hx Tonsillectomy. Denies: Hx Pacemaker - Immunizations Immunizations up to date: Yes Hx Diphtheria, Pertussis, Tetanus Vaccination: Yes Vertical Provider Document - CONSTITUTIONAL Agree With Documented VS: Yes Exam Limitations: No Limitations General Appearance: WD/WN, No Apparent Distress - INFECTION CONTROL TRAVEL OUTSIDE OF THE [place] IN LAST 30 DAYS: No - HEENT HEENT: Atraumatic, Normocephalic. negative: Pharyngeal Exudate, Pharyngeal Erythema - NECK Neck: Normal Inspection, Supple. negative: Lymphadenopathy-Left, Lymphadenopathy-Right - RESPIRATORY Respiratory: Breath Sounds Normal, No Respiratory Distress. negative: Rhonchi, Wheezing O2 Sat by Pulse Oximetry: 98 - CARDIOVASCULAR Cardiovascular: Regular Rate, Regular Rhythm - GI/ABDOMEN Gastrointestinal: Abdomen Soft, Abdomen Non-Tender - MUSCULOSKELETAL/EXTREMETIES Musculoskeletal/Extremeties: MAEW, FROM - NEURO Level of Consciousness: Awake, Alert, Appropriate Motor/Sensory: No Motor Deficit - DERM Integumentary: Warm, Dry Course - Vital Signs Vital signs: Temp Pulse Resp BP Pulse Ox 98.8 F 85 20 104/91 H 98 02/28/16 08:39 02/28/16 08:39 02/28/16 08:39 02/28/16 08:39 02/28/16 08:39 Discharge - Discharge Clinical Impression: History of asthma Headache Qualifiers: Headache type: unspecified Headache chronicity pattern: unspecified pattern Intractability: not intractable Qualified Code(s): R51 - Headache Condition: Stable Disposition: HOME, SELF-CARE Instructions: Headache ([facility]), Acetaminophen, Bronchodilators ([facility]), [facility] Additional Instructions: *You have been evaluated for headache, history of asthma *Take tylenol as indicated *Use inhaler as indicated *Follow up with the [facility] for treatment of your asthma *Return to ED for worsening condition, changes, needs
== END 2016-02-28 10:44 | disposition home or self-care (01) ==
LOC: ER 08:33
DX: R51 Headache (principal); J45.909 Unspecified asthma, uncomplicated; J44.9 Chronic obstructive pulmonary disease, unspecified; R14.0 Abdominal distension (gaseous); Z87.01 Personal history of pneumonia (recurrent); Z59.0 Homelessness
CPT/HCPCS: 99283; J3490

== ENCOUNTER 2016-03-13 11:53 | Emergency (ER) | payer SELFPAY ==
--- NOTE | 2016-03-13 12:31 | ER Document Report ---
ED Medical Screen (RME) - General Stated Complaint: DIFFICULTY BREATHING Mode of Arrival: Ambulatory Information source: Patient Notes: Patient presents complaining of difficulty breathing for the past hour. Patient is requesting an inhaler be prescribed. Patient without any wheezing in triage. Resp unlabored. TRAVEL OUTSIDE OF THE [place] IN LAST 30 DAYS: No - Related Data Allergies/Adverse Reactions: poison veronica extract [Poison [place]onica Extract] Allergy (Verified 03/13/16 12:30) poison oak extract [Poison [place] Extract] Allergy (Verified 03/13/16 12:30) Past Medical History - Social History Family history: None. denies: CAD - Past Medical History Cardiac Medical History: Denies: Hx Coronary Artery Disease, Hx Hypertension, Hx Pulmonary Embolism Pulmonary Medical History: Reports: Hx Asthma, Hx Bronchitis, Hx COPD, Hx Pneumonia Denies: Hx Respiratory Failure, Hx Sleep Apnea, Hx Tuberculosis Endocrine Medical History: Denies: Hx Diabetes Mellitus Type 1, Hx Diabetes Mellitus Type 2 Renal/ Medical History: Denies: Hx Peritoneal Dialysis Malignancy Medical History: Denies Hx Lung Cancer Psychiatric Medical History: Reports: Hx Attention Deficit Hyperactivity Disorder Denies: Hx Anxiety, Hx Bipolar Disorder, Hx Depression, Hx Schizophrenia Past Surgical History: Reports: Hx Tonsillectomy. Denies: Hx Pacemaker - Immunizations Immunizations up to date: Yes Hx Diphtheria, Pertussis, Tetanus Vaccination: Yes Physical Exam - Vital signs Vitals: Temp Pulse Resp BP Pulse Ox 97.6 F 75 24 H 65/38 L 98 03/13/16 12:28 03/13/16 12:28 03/13/16 12:28 03/13/16 12:28 03/13/16 12:28 - Respiratory Respiratory status: No respiratory distress Chest status: Nontender Course - Vital Signs Vital signs: Temp Pulse Resp BP Pulse Ox 97.6 F 75 24 H 65/38 L 98 03/13/16 12:28 03/13/16 12:28 03/13/16 12:28 03/13/16 12:28 03/13/16 12:28
--- NOTE | 2016-03-13 14:59 | ER Document Report ---
ED Respiratory Problem - General Chief Complaint: Breathing Difficulty Stated Complaint: DIFFICULTY BREATHING Mode of Arrival: Ambulatory Information source: Patient TRAVEL OUTSIDE OF THE [place] IN LAST 30 DAYS: No - HPI Patient complains to provider of: Asthma Onset: This morning Duration: Better Initiating Event: Out of meds. No: Exertion, Exposure to chemicals, Exposure to dust, Exposure to fumes, Exposure to mold, Exposure to smoke, Sports/exercise Quality of pain: No pain Pain Level: Denies Context: Hx asthma Short of Breath: Mild Cough: Nonproductive Sputum amount: None Associated symptoms: None. denies: Chest pain/discomfort Similar symptoms previously: Yes Recently seen / treated by doctor: No - Related Data Allergies/Adverse Reactions: poison veronica extract [Poison [place] Extract] Allergy (Verified 03/13/16 12:30) poison oak extract [Poison [place] Extract] Allergy (Verified 03/13/16 12:30) Past Medical History - General Information source: Patient - Social History Smoking Status: Unknown if Ever Smoked Chew tobacco use (# tins/day): No Frequency of alcohol use: None Drug Abuse: None Lives with: Alone Family History: Reviewed & Not Pertinent Patient has suicidal ideation: No Patient has homicidal ideation: No - Past Medical History Cardiac Medical History: Denies: Hx Coronary Artery Disease, Hx Hypertension, Hx Pulmonary Embolism Pulmonary Medical History: Reports: Hx Asthma, Hx Bronchitis, Hx COPD, Hx Pneumonia Denies: Hx Respiratory Failure, Hx Sleep Apnea, Hx Tuberculosis Endocrine Medical History: Denies: Hx Diabetes Mellitus Type 1, Hx Diabetes Mellitus Type 2 Renal/ Medical History: Denies: Hx Peritoneal Dialysis Malignancy Medical History: Denies Hx Lung Cancer Psychiatric Medical History: Reports: Hx Attention Deficit Hyperactivity Disorder Denies: Hx Anxiety, Hx Bipolar Disorder, Hx Depression, Hx Schizophrenia Surgical Hx: Negative Past Surgical History: Reports: Hx Tonsillectomy. Denies: Hx Pacemaker - Immunizations Immunizations up to date: Yes Hx Diphtheria, Pertussis, Tetanus Vaccination: Yes Review of Systems - Review of Systems Constitutional: No symptoms reported EENT: No symptoms reported Cardiovascular: No symptoms reported Respiratory: See HPI Gastrointestinal: No symptoms reported Genitourinary: No symptoms reported Musculoskeletal: No symptoms reported Skin: No symptoms reported Neurological/Psychological: No symptoms reported Physical Exam - Vital signs Vitals: Temp Pulse Resp BP Pulse Ox 97.6 F 75 24 H 104/90 H 98 03/13/16 12:28 03/13/16 12:28 03/13/16 12:28 03/13/16 12:28 03/13/16 12:28 Interpretation: Tachypneic. No: Hypertensive, Tachycardic - General General appearance: Appears well, Alert In distress: None - HEENT Head: Normocephalic Eyes: Normal Conjunctiva: Normal Ears: Normal Nasal: Normal Mouth/Lips: Normal Mucous membranes: Normal - Respiratory Respiratory status: No respiratory distress Chest status: Nontender Breath sounds: Wheezing - RARE END-EXP. L. BASE - Cardiovascular Rhythm: Regular Heart sounds: Normal auscultation Murmur: No - Abdominal Inspection: Normal Distension: No distension Bowel sounds: Normal - Back Back: Normal - Extremities General upper extremity: Normal inspection General lower extremity: Normal inspection - Neurological Neuro grossly intact: Yes Cognition: Normal Orientation: AAOx4 - Psychological Associated symptoms: Normal affect, Normal mood - Skin Skin Temperature: Warm Skin Moisture: Dry Skin Color: Normal Skin Turgor: Elastic Course - Vital Signs Vital signs: Temp Pulse Resp BP Pulse Ox 97.6 F 75 24 H 104/90 H 98 03/13/16 12:28 03/13/16 12:28 03/13/16 12:28 03/13/16 12:34 03/13/16 12:28 Discharge - Discharge Clinical Impression: Asthma Qualifiers: Asthma severity: mild intermittent Asthma complication type: uncomplicated Qualified Code(s): J45.20 - Mild intermittent asthma, uncomplicated Condition: Stable Disposition: HOME, SELF-CARE Instructions: Asthma ([facility]), Inhaled Bronchodilators ([facility]) Prescriptions: Albuterol Sulfate [Proair HFA] 8.5 gm IH Q4HP PRN #2 [email or web address] PRN Reason: For Wheezing
[2016-03-13] MEDS ORDERED: ALBUTEROL SULFATE HFA (90 MCG/PUFF) 8 GM MDI (1 MDI/ER DISP) IH ONE (15:14)
[2016-03-13 15:19] VITALS: BP 116/64
== END 2016-03-13 15:25 | disposition home or self-care (01) ==
LOC: ER 11:53
DX: J45.20 Mild intermittent asthma, uncomplicated (principal); R06.00 Dyspnea, unspecified
CPT/HCPCS: 99284; J3490

== ENCOUNTER 2016-03-20 18:32 | Emergency (ER) | payer SELFPAY ==
[2016-03-20 18:51] VITALS: BP 117/68
--- NOTE | 2016-03-20 18:54 | ER Document Report ---
ED Medical Screen (RME) - General Stated Complaint: COUGH,CONGESTION,DIFFICULTY BREATHING Time seen by provider: 18:49 Mode of Arrival: Ambulatory Information source: Patient Notes: 30-year-old male presents to ED for trouble breathing for the last few hours. Denies any cough, runny nose, or any fevers. Denies smoking TRAVEL OUTSIDE OF THE [place] IN LAST 30 DAYS: No - HPI Onset: This evening Onset/Duration: Intermittent Quality of pain: No pain Severity: None Associated Symptoms: None, Shortness of breath. denies: Chest pain Exacerbated by: Denies Relieved by: Denies Similar symptoms previously: Yes Recently seen / treated by doctor: No - Related Data Smoking: Non-smoker Frequency of alcohol use: None Drug Abuse: None Allergies/Adverse Reactions: poison veronica extract [Poison Veronica Extract] Allergy (Verified 03/13/16 12:30) poison oak extract [Poison [employer] Extract] Allergy (Verified 03/13/16 12:30) Past Medical History - General Information source: Patient - Social History Cigarette use (# per day): No Chew tobacco use (# tins/day): No Frequency of alcohol use: None Drug Abuse: None Occupation: none Lives with: Homeless Family history: None. denies: CAD, CVA, DM, Hyperlipidemia, Hypertension, Malignancy, Thyroid Disfunction - Past Medical History Cardiac Medical History: Reports: None Pulmonary Medical History: Reports: Hx Asthma, Hx Bronchitis, Hx COPD, Hx Pneumonia EENT Medical History: Reports: None Neurological Medical History: Reports: None Endocrine Medical History: Reports: None Renal/ Medical History: Reports: None. Denies: Hx Peritoneal Dialysis Malignancy Medical History: Reports None GI Medical History: Reports: None Musculoskeltal Medical History: Reports None Skin Medical History: Reports None Psychiatric Medical History: Reports: None Traumatic Medical History: Reports: None Infectious Medical History: Reports: None Surgical Hx: Negative Past Surgical History: Reports: None - Immunizations Immunizations up to date: Yes Hx Diphtheria, Pertussis, Tetanus Vaccination: Yes Review of Systems - Review of Systems Constitutional: No symptoms reported EENT: No symptoms reported Cardiovascular: No symptoms reported Respiratory: Short of breath Gastrointestinal: No symptoms reported Genitourinary: No symptoms reported Male Genitourinary: No symptoms reported Musculoskeletal: No symptoms reported Skin: No symptoms reported Hematologic/Lymphatic: No symptoms reported Neurological/Psychological: No symptoms reported Physical Exam - Vital signs Vitals: Temp Pulse Resp BP Pulse Ox 98.0 F 83 18 117/68 98 03/20/16 18:48 03/20/16 18:48 03/20/16 18:48 03/20/16 18:48 03/20/16 18:48 Interpretation: Normal - General General appearance: Appears well, Alert - HEENT Head: Normocephalic, Atraumatic Eyes: Normal Pupils: PERRL - Respiratory Respiratory status: No respiratory distress Chest status: Nontender Breath sounds: Normal Chest palpation: Normal - Cardiovascular Rhythm: Regular Heart sounds: Normal auscultation Murmur: No - Abdominal Inspection: Normal Distension: No distension Bowel sounds: Normal Tenderness: Nontender Organomegaly: No organomegaly - Back Back: Normal, Nontender - Extremities General upper extremity: Normal inspection, Nontender, Normal color, Normal ROM , Normal temperature General lower extremity: Normal inspection, Nontender, Normal color, Normal ROM , Normal temperature, Normal weight bearing. No: Kush's sign - Neurological Neuro grossly intact: Yes Cognition: Normal Orientation: AAOx4 [place] Coma Scale Eye Opening: Spontaneous [place] Coma Scale Verbal: Oriented [place] Coma Scale Motor: Obeys Commands [place] Coma Scale Total: 15 Speech: Normal Motor strength normal: LUE, RUE, LLE, RLE Sensory: Normal - Psychological Associated symptoms: Normal affect, Normal mood - Skin Skin Temperature: Warm Skin Moisture: Dry Skin Color: Normal Course - Re-evaluation Re-evalutation: 03/20/16 18:57 30-year-old male presents to ED for shortness of breath states he is out of his inhaler that he uses every day. We will dispense an inhaler until he can follow up with his primary doctor. - Vital Signs Vital signs: Temp Pulse Resp BP Pulse Ox 98.0 F 83 18 117/68 98 03/20/16 18:48 03/20/16 18:48 03/20/16 18:48 03/20/16 18:48 03/20/16 18:48 Doctor's Discharge - Discharge Clinical Impression: Asthma Qualifiers: Asthma severity: mild intermittent Asthma complication type: uncomplicated Qualified Code(s): J45.20 - Mild intermittent asthma, uncomplicated Disposition: HOME, SELF-CARE Instructions: Family Physicians / Practices Additional Instructions: ASTHMA: You have been diagnosed as having asthma. This is a condition where there is episodic tightness in the bronchial tubes. Allergies, infections, and polluted or cold air may be contributing factors. Emergency treatment of a severe asthma attack may include adrenaline shots , or bronchodilator aerosol. You may feel lightheaded, have a decreased exercise tolerance and a rapid pulse for an hour or two. Rest and get plenty of fluids. Home treatment of asthma requires bronchodilator drugs. These can be administered by injection, inhalation, or by mouth. Antibiotics and corticosteroids may be required for some patients. You should avoid chemical fumes, dusts, pollens, and exercising in very cold or dry air. If you smoke, stop!! If you develop a fever, increased wheezing, chest pain, or severe shortness of breath, you should contact the doctor immediately. INHALED BRONCHODILATORS: You have received treatment(s) of and/or prescription for an inhaled bronchodilator -- a medication which stimulates the airways in the lung to dilate. This improves the flow of air in asthma, bronchitis, and emphysema. These medicines have some similarity to adrenaline, and can cause similar side effects: shakiness, racing heart, and a sense of nervousness. These side effects decrease with time. Contact your doctor if these side effects are severe. Do not over-use the medicine. Too-frequent use of the inhaler may make it ineffective. Call your doctor if the inhaler is not controlling your symptoms at the prescribed doses. USE OF ACETAMINOPHEN (Tylenol): Acetaminophen may be taken for pain relief or fever control. It's much safer than aspirin, offering a wider range of "safe" dosages. It is safe during . Some brand names are Tylenol, Panadol, Datril, Anacin 3, Tempra, and Liquiprin. Acetaminophen can be repeated every four hours. The following are maximum recommended dosages: WEIGHT Dose Drops Elixir Chewable( 80mg) (LBS.) drprs=droppers tsp=teaspoon 6 40 mg 0.4 ml (1/2) 6-11 80 mg 0.8 ml (full) tsp 1 tab 12-16 120 mg 1 1/2 drprs 3/4 tsp 1 1/2 tabs 17-23 160 mg 2 drprs 1 tsp 2 tabs 24-30 240 mg 3 drprs 1 1/2 tsp 3 tabs 30-35 320 mg 2 tsp 4 tabs 36-41 360 mg 2 1/4 tsp 4 1/2 tabs 42-47 400 mg 2 1/2 tsp 5 tabs 48-53 480 mg 3 tsp 6 tabs 54-59 520 mg 3 1/4 tsp 6 1/2 tabs 60-64 560 mg 3 1/2 tsp 7 tabs 65-70 600 mg 3 3/4 tsp 7 1/2 tabs 71-76 640 mg 4 tsp 8 tabs 77-82 720 mg 4 1/2 tsp 9 tabs 83-88 800 mg 5 tsp 10 tabs >89 pounds or adults 650 mg to 900 mg Acetaminophen can be repeated every four hours. Maximum dose not to exceed 4000 mg a day. These maximum recommended dosages are slightly higher than the dosages written on the product container, but these dosages are very safe and below the toxic dosage for acetaminophen. FOLLOW-UP CARE: If you have been referred to a physician for follow-up care, call the physician s office for an appointment as you were instructed or within the next two days. If you experience worsening or a significant change in your symptoms, notify the physician immediately or return to the Emergency Department at any time for re-evaluation. Referrals: [facility] [Provider Group] - Follow up as needed
[2016-03-20] MEDS ORDERED: ALBUTEROL SULFATE HFA (90 MCG/PUFF) 8 GM MDI (1 MDI/ER DISP) IH PRN (18:59)
== END 2016-03-20 19:07 | disposition home or self-care (01) ==
LOC: ER 18:32
DX: J45.20 Mild intermittent asthma, uncomplicated (principal); R05 Cough; R09.81 Nasal congestion; R06.02 Shortness of breath
CPT/HCPCS: 99284; J3490

== ENCOUNTER 2016-03-28 22:52 | Emergency (ER) | payer SELFPAY ==
[2016-03-29 00:03] VITALS: BP 142/66
--- NOTE | 2016-03-29 00:16 | ER Document Report ---
ED Medical Screen (RME) - General Stated Complaint: DIFFICULTY BREATHING Time seen by provider: 00:14 Mode of Arrival: Ambulatory Information source: Patient Notes: 30-year-old male presents to ED because he is out of his inhaler. He states she 's not having any discomfort at this time. He goes to [facility] I have greeted and performed a rapid initial assessment of this patient. A comprehensive ED assessment and evaluation of the patient, analysis of test results and completion of medical decision making process will be conducted by an additional ED providers. TRAVEL OUTSIDE OF THE [place] IN LAST 30 DAYS: No - Related Data Allergies/Adverse Reactions: poison veronica extract [Poison Veronica Extract] Allergy (Verified 03/13/16 12:30) poison oak extract [Poison [place] Extract] Allergy (Verified 03/13/16 12:30) Past Medical History - Social History Family history: None. denies: CAD, CVA, DM, Hyperlipidemia, Hypertension, Malignancy, Thyroid Disfunction - Past Medical History Cardiac Medical History: Denies: Hx Coronary Artery Disease, Hx Hypertension, Hx Pulmonary Embolism Pulmonary Medical History: Reports: Hx Asthma, Hx Bronchitis, Hx COPD, Hx Pneumonia Denies: Hx Respiratory Failure, Hx Sleep Apnea, Hx Tuberculosis Endocrine Medical History: Denies: Hx Diabetes Mellitus Type 1, Hx Diabetes Mellitus Type 2 Renal/ Medical History: Denies: Hx Peritoneal Dialysis Malignancy Medical History: Denies Hx Lung Cancer Psychiatric Medical History: Reports: Hx Attention Deficit Hyperactivity Disorder Denies: Hx Anxiety, Hx Bipolar Disorder, Hx Depression, Hx Schizophrenia Past Surgical History: Reports: Hx Tonsillectomy. Denies: Hx Pacemaker - Immunizations Immunizations up to date: Yes Hx Diphtheria, Pertussis, Tetanus Vaccination: Yes Physical Exam - Vital signs Vitals: Temp Pulse Resp BP 97.9 F 90 22 H 142/66 H 03/29/16 00:01 03/29/16 00:01 03/29/16 00:01 03/29/16 00:01 Course - Vital Signs Vital signs: Temp Pulse Resp BP Pulse Ox 97.9 F 90 22 H 142/66 H 03/29/16 00:01 03/29/16 00:01 03/29/16 00:01 03/29/16 00:01
== END 2016-03-29 04:05 | disposition left against medical advice (07) ==
LOC: ER 22:52
DX: Z53.9 Procedure and treatment not carried out, unspecified reason (principal); R06.02 Shortness of breath
CPT/HCPCS: 99281

== ENCOUNTER 2016-03-29 14:32 | Emergency (ER) | payer SELFPAY ==
[2016-03-29 14:36] VITALS: BP 132/76
--- NOTE | 2016-03-29 14:50 | ER Document Report ---
ED Medical Screen (RME) - General Stated Complaint: SHORTNESS OF BREATH,COUGH Mode of Arrival: Ambulatory Information source: Patient Notes: Patient presents complaining of difficulty breathing and states that he is just here to get a few inhalers. Patient reports difficulty breathing that just started today. Pt has been here multiple times this month for the same complaint and at each visit requests inhalers. hx: None I have greeted and performed a rapid initial assessment of this patient. A comprehensive ED assessment and evaluation of the patient, analysis of test results and completion of the medical decision making process will be conducted by additional ED providers. TRAVEL OUTSIDE OF THE [place] IN LAST 30 DAYS: No - Related Data Allergies/Adverse Reactions: poison veronica extract [Poison Veronica Extract] Allergy (Verified 03/29/16 00:15) poison oak extract [Poison [place] Extract] Allergy (Verified 03/29/16 00:15) Past Medical History - Social History Family history: None. denies: CAD, CVA, DM, Hyperlipidemia, Hypertension, Malignancy, Thyroid Disfunction - Past Medical History Cardiac Medical History: Denies: Hx Coronary Artery Disease, Hx Hypertension, Hx Pulmonary Embolism Pulmonary Medical History: Reports: Hx Asthma, Hx Bronchitis, Hx COPD, Hx Pneumonia Denies: Hx Respiratory Failure, Hx Sleep Apnea, Hx Tuberculosis Endocrine Medical History: Denies: Hx Diabetes Mellitus Type 1, Hx Diabetes Mellitus Type 2 Renal/ Medical History: Denies: Hx Peritoneal Dialysis Malignancy Medical History: Denies Hx Lung Cancer Psychiatric Medical History: Reports: Hx Attention Deficit Hyperactivity Disorder Denies: Hx Anxiety, Hx Bipolar Disorder, Hx Depression, Hx Schizophrenia Past Surgical History: Reports: Hx Tonsillectomy. Denies: Hx Pacemaker - Immunizations Immunizations up to date: Yes Hx Diphtheria, Pertussis, Tetanus Vaccination: Yes Physical Exam - Vital signs Vitals: Temp Pulse Resp BP Pulse Ox 98.5 F 92 16 132/76 H 98 03/29/16 14:35 03/29/16 14:35 03/29/16 14:35 03/29/16 14:35 03/29/16 14:35 - Respiratory Respiratory status: No respiratory distress Breath sounds: Normal. No: Rales, Rhonchi, Stridor, Wheezing Course - Vital Signs Vital signs: Temp Pulse Resp BP Pulse Ox 98.5 F 92 16 132/76 H 98 03/29/16 14:35 03/29/16 14:35 03/29/16 14:35 03/29/16 14:35 03/29/16 14:35
--- NOTE | 2016-03-29 18:11 | ER Document Report ---
ED General - General Mode of Arrival: Ambulatory Information source: Patient TRAVEL OUTSIDE OF THE [place] IN LAST 30 DAYS: No - HPI Patient complains to provider of: shortness of breath Associated symptoms: Other - see above - General Chief Complaint: Medication Refill Stated Complaint: SHORTNESS OF BREATH,COUGH Notes: 30 year old male presents to the ED complaining of difficulty breathing. Patient requests that he get his inhaler refilled and receive a breathing treatment and food before he is discharged. Patient does not have a primary care provider that he follows up with. (NILA GARCIA) - Related Data Allergies/Adverse Reactions: poison veronica extract [Poison Veronica Extract] Allergy (Verified 03/29/16 14:52) poison oak extract [Poison [place] Extract] Allergy (Verified 03/29/16 14:52) Past Medical History - General Information source: Patient - Social History Smoking Status: Never Smoker Chew tobacco use (# tins/day): No Frequency of alcohol use: None Drug Abuse: None Family History: Reviewed & Not Pertinent Patient has suicidal ideation: No Patient has homicidal ideation: No - Past Medical History Cardiac Medical History: Denies: Hx Coronary Artery Disease, Hx Hypertension, Hx Pulmonary Embolism Pulmonary Medical History: Reports: Hx Asthma, Hx Bronchitis, Hx COPD, Hx Pneumonia Denies: Hx Respiratory Failure, Hx Sleep Apnea, Hx Tuberculosis Endocrine Medical History: Denies: Hx Diabetes Mellitus Type 1, Hx Diabetes Mellitus Type 2 Renal/ Medical History: Denies: Hx Peritoneal Dialysis Malignancy Medical History: Denies Hx Lung Cancer Psychiatric Medical History: Reports: Hx Attention Deficit Hyperactivity Disorder Denies: Hx Anxiety, Hx Bipolar Disorder, Hx Depression, Hx Schizophrenia Past Surgical History: Reports: Hx Tonsillectomy. Denies: Hx Pacemaker - Immunizations Immunizations up to date: Yes Hx Diphtheria, Pertussis, Tetanus Vaccination: Yes Review of Systems - Review of Systems Constitutional: No symptoms reported EENT: No symptoms reported Cardiovascular: No symptoms reported Respiratory: See HPI, Short of breath Gastrointestinal: No symptoms reported Genitourinary: No symptoms reported Male Genitourinary: No symptoms reported Musculoskeletal: No symptoms reported Skin: No symptoms reported Hematologic/Lymphatic: No symptoms reported Neurological/Psychological: No symptoms reported -: Yes All other systems reviewed and negative Physical Exam - Vital signs Interpretation: Normal - General General appearance: Alert In distress: None - HEENT Head: Normocephalic, Atraumatic Eyes: Normal Extraocular movements intact: Yes Pupils: PERRL - Respiratory Respiratory status: No respiratory distress Breath sounds: Normal - Cardiovascular Rhythm: Regular Heart sounds: Normal auscultation - Abdominal Inspection: Normal - Back Back: Normal - Extremities General upper extremity: Normal inspection, Normal ROM General lower extremity: Normal inspection, Normal ROM, Normal weight bearing - Neurological Neuro grossly intact: Yes Cognition: Normal Orientation: AAOx4 [place] Coma Scale Eye Opening: Spontaneous Paula Coma Scale Verbal: Oriented [place] Coma Scale Motor: Obeys Commands [place] Coma Scale Total: 15 Speech: Normal - Psychological Associated symptoms: Normal affect, Normal mood - Skin Skin Temperature: Warm Skin Moisture: Dry Skin Color: Normal Course - Re-evaluation Re-evalutation: 03/29/16 18:26 I personally performed the services described in the documentation, reviewed and edited the documentation which was dictated to my scribe in my presence, and it accurately records my words and actions. Patient in the emergency department with runny nose asking for refill on his inhaler. Apparently the patient according to security has been found multiple sites throughout the hospital sleeping in bathrooms and such not over the past couple of weeks. Patient denies being homeless denies any suicidal or homicidal complaints but is requesting that we feed him. Patient is ready to be discharged and cannot give me a reason to prescribe anything including an inhaler. He denies a history of respiratory illness he is well-appearing nontoxic in no acute distress normal pulse ox lungs are clear no dyspnea on exertion will be discharged albuterol inhaler clinic for follow-up and discuss reasons for ED return sooner (KAMERON ALFONSO) - Vital Signs Vital signs: Temp Pulse Resp BP Pulse Ox 98.5 F 92 16 132/76 H 98 03/29/16 14:35 03/29/16 14:35 03/29/16 14:35 03/29/16 14:35 03/29/16 14:35 Discharge - Discharge Clinical Impression: Medication refill Condition: Stable Disposition: HOME, SELF-CARE Additional Instructions: Upper Respiratory Illness You have a viral infection of the respiratory passages -- a "cold." This common infection causes nasal congestion, drainage, and often sore throat and cough. It is caused by a virus and is highly contagious. The disease usually lasts a week or more, though the worst symptoms are usually over in 3 or 4 days. There is no "cure" for the viral infection -- it must run its course. If there is a complication, such as bacterial infection in the nose, sinuses, middle ear, or bronchial tubes, antibiotics may be required, but antibiotics won 't affect the virus. If you smoke, you should STOP!! Drink plenty of fluids. A humidifier may help. An expectorant medication or decongestant may make you more comfortable. Use acetaminophen or ibuprofen for fever or aches. See the doctor if fever persists over two or three days, if there is any significant worsening of your symptoms, or if you simply fail to improve as expected. Prescriptions: Albuterol Sulfate [Proair HFA Inhalation Aerosol 8.5 gm MDI] 2 puff IH Q4H PRN # 1 mdi PRN Reason: Scribe Documentation - Scribe Written by Марина:: Марина Delgado, 03/29/2016 [id number] acting as scribe for :: Pablo
== END 2016-03-29 18:45 | disposition home or self-care (01) ==
LOC: ER 14:32
DX: Z76.0 Encounter for issue of repeat prescription (principal); R06.02 Shortness of breath; Z87.01 Personal history of pneumonia (recurrent); Z91.048 Other nonmedicinal substance allergy status; R09.89 Other specified symptoms and signs involving the circulatory and respiratory systems
CPT/HCPCS: 99281

== ENCOUNTER 2016-03-30 18:45 | Emergency (ER) | payer SELFPAY ==
[2016-03-30 19:26] VITALS: BP 136/83
--- NOTE | 2016-03-30 19:51 | ER Document Report ---
ED Medical Screen (RME) - General Stated Complaint: BREATHING ISSUES Notes: 30yo male presenting to ED requesting inhaler. pt has been seen multiple times for same request. Pt was given an inhaler from ED 03/20, but is saying his inhaler is at his family's house and can not get it. pt was seen in ED last night for same, given RX for inhaler. pt reports not being able to get Rx filled due to lack money. pt denies any respiratory problems at this time. lungs are clear. Sat 98% pt is homeless. says he is local, but no contact with family reports [facility], but no beds available discussed with Dr Shah. trying to facilitate placement in area penitentiary TRAVEL OUTSIDE OF THE [place] IN LAST 30 DAYS: No - Related Data Allergies/Adverse Reactions: poison veronica extract [Poison Veronica Extract] Allergy (Verified 03/29/16 14:52) poison oak extract [Poison [place] Extract] Allergy (Verified 03/29/16 14:52) Past Medical History - Social History Frequency of alcohol use: None Drug Abuse: None Family history: None. denies: CAD, CVA, DM, Hyperlipidemia, Hypertension, Malignancy, Thyroid Disfunction - Past Medical History Cardiac Medical History: Denies: Hx Coronary Artery Disease, Hx Hypertension, Hx Pulmonary Embolism Pulmonary Medical History: Reports: Hx Asthma, Hx Bronchitis, Hx COPD, Hx Pneumonia Denies: Hx Respiratory Failure, Hx Sleep Apnea, Hx Tuberculosis Endocrine Medical History: Denies: Hx Diabetes Mellitus Type 1, Hx Diabetes Mellitus Type 2 Renal/ Medical History: Denies: Hx Peritoneal Dialysis Malignancy Medical History: Denies Hx Lung Cancer Psychiatric Medical History: Reports: Hx Attention Deficit Hyperactivity Disorder Denies: Hx Anxiety, Hx Bipolar Disorder, Hx Depression, Hx Schizophrenia Past Surgical History: Reports: Hx Tonsillectomy. Denies: Hx Pacemaker - Immunizations Immunizations up to date: Yes Hx Diphtheria, Pertussis, Tetanus Vaccination: Yes Physical Exam - Vital signs Vitals: Temp Pulse Resp BP Pulse Ox 97.9 F 100 20 136/83 H 98 03/30/16 19:25 03/30/16 19:25 03/30/16 19:25 03/30/16 19:25 03/30/16 19:25 Course - Vital Signs Vital signs: Temp Pulse Resp BP Pulse Ox 97.9 F 100 20 136/83 H 98 03/30/16 19:25 03/30/16 19:25 03/30/16 19:25 03/30/16 19:25 03/30/16 19:25
--- NOTE | 2016-03-30 23:21 | ER Document Report ---
ED General - General Chief Complaint: Breathing Difficulty Stated Complaint: BREATHING ISSUES Notes: Patient is a 30-year-old male who presents with complaints of intermittent difficulty breathing. He's been seen here many times for the same thing. He presents today saying that he wants an inhaler. He denies history of asthma. When I asked him if he smokes he initially tells me no. No this is not true because he smells of cigarette smoke. I informed him that his previous records indicate that he does smoke. Patient then admits that he does smoke. I told patient that he just received albuterol inhaler a few days ago. Patient says that his family through that one away. I informed him that he get a prescription yesterday. Patient says he cannot afford to fill the prescription. I patient of 70 fevers. He says no. He denies any chest pain. He has no other complaints at this time. TRAVEL OUTSIDE OF THE [place] IN LAST 30 DAYS: No - Related Data Allergies/Adverse Reactions: poison veronica extract [Poison Veronica Extract] Allergy (Verified 03/29/16 14:52) poison oak extract [Poison [place] Extract] Allergy (Verified 03/29/16 14:52) Past Medical History - Social History Smoking Status: Unknown if Ever Smoked Frequency of alcohol use: None Drug Abuse: None Family History: Reviewed & Not Pertinent Patient has suicidal ideation: No Patient has homicidal ideation: No - Past Medical History Cardiac Medical History: Denies: Hx Coronary Artery Disease, Hx Hypertension, Hx Pulmonary Embolism Pulmonary Medical History: Reports: Hx Asthma, Hx Bronchitis, Hx COPD, Hx Pneumonia Denies: Hx Respiratory Failure, Hx Sleep Apnea, Hx Tuberculosis Endocrine Medical History: Denies: Hx Diabetes Mellitus Type 1, Hx Diabetes Mellitus Type 2 Renal/ Medical History: Denies: Hx Peritoneal Dialysis Malignancy Medical History: Denies Hx Lung Cancer Psychiatric Medical History: Reports: Hx Attention Deficit Hyperactivity Disorder Denies: Hx Anxiety, Hx Bipolar Disorder, Hx Depression, Hx Schizophrenia Past Surgical History: Reports: Hx Tonsillectomy. Denies: Hx Pacemaker - Immunizations Immunizations up to date: Yes Hx Diphtheria, Pertussis, Tetanus Vaccination: Yes Review of Systems - Review of Systems Notes: My Normal Review Basic REVIEW OF SYSTEMS: CONSTITUTIONAL : Denies fever, chills, or sweats. Denies recent illness. EENT: Denies eye, ear, throat, or mouth pain or symptoms. Denies nasal or sinus congestion. CARDIOVASCULAR: Denies chest pain. RESPIRATORY: Difficulty breathing. Cough GASTROINTESTINAL: Denies abdominal pain. Denies nausea, vomiting, or diarrhea. Denies constipation. Last BM: MUSCULOSKELETAL: Denies neck or back pain or joint pain or swelling. SKIN: Denies rash or skin lesions. NEUROLOGICAL: Denies altered mental status or loss of consciousness. Denies headache. Denies weakness or paralysis or loss of use of either side. Denies problems with gait or speech. Denies sensory or motor loss. ALL OTHER SYSTEMS REVIEWED AND NEGATIVE. Physical Exam - Vital signs Vitals: Temp Pulse Resp BP Pulse Ox 97.9 F 100 20 136/83 H 98 03/30/16 19:25 03/30/16 19:25 03/30/16 19:25 03/30/16 19:25 03/30/16 19:25 - Notes Notes: General Appearance: Well nourished, alert, cooperative, no acute distress, no obvious discomfort. Well-appearing. Vitals: reviewed, See vital signs table. Lungs: No wheezing, No rales, No rhonci, No accessory muscle use, good air exchange bilaterally. Lung zarate are completely clear. No increased work of breathing. No tachypnea. Heart: Normal rate, Regular rythm, No murmur, no rub Extremities: strength 5/5 in all extremities, good pulses in all extremities, no swelling or tenderness in the extremities, no edema. Skin: warm, dry, appropriate color, no rash Neuro: speech clear, oriented x 3, normal affect, responds appropriately to questions. Course - Vital Signs Vital signs: Temp Pulse Resp BP Pulse Ox 97.9 F 100 20 136/83 H 98 03/30/16 19:25 03/30/16 19:25 03/30/16 19:25 03/30/16 19:25 03/30/16 19:25 - Transfer of Care Notes: 03/31/16 06:22 On my evaluation the patient is very well-appearing. He has no increased work of breathing. Has no tachypnea. His lung zarate are completely clear without any wheezing or rhonchi. He has very good air movement. I did review the patient's most recent records. This is his 14th visit in 2 months. He's received 4 albuterol inhalers. At this time I do not thing she requires an OB her inhaler as his lung zarate are completely clear No wheezing and no history of asthma. I informed him the best thing for his breathing and cough would be to quit smoking. Patient becomes very upset informs me that I have to give him that Steff. Informed him that I do not think inhalers beneficial to him when he has no wheezing and that continue to give him a medication that I do not feel would be helpful would not make sense to me. I do not think it's appropriate for me to prescribe him a medication are given a medication when I do not have any indication physical exam as there is always a risk for adverse reaction with any medication. Patient again is very upset with me and disagrees with me at this time. Patient encouraged return to ER if he actually has wheezing, any fevers, or any rapid breathing or if he feels that his breathing is worsening. Patient strongly encouraged to quit smoking. Dictation of this chart was performed using voice recognition software; therefore, there may be some unintended grammatical errors. Discharge - Discharge Clinical Impression: Dyspnea Qualifiers: Dyspnea type: unspecified Qualified Code(s): R06.00 - Dyspnea, unspecified Condition: Good Disposition: HOME, SELF-CARE Additional Instructions: Please return to ER if you have wheezing, increased difficulty breathing, fevers , or feel that you are worsening. I provided information to the [facility] in your discharge paperwork. They will see you even though do not have insurance. Please follow-up with them for reevaluation. Forms: Smoking Cessation Education
== END 2016-03-30 23:10 | disposition home or self-care (01) ==
LOC: ER 18:45
DX: R06.00 Dyspnea, unspecified (principal); F17.210 Nicotine dependence, cigarettes, uncomplicated
CPT/HCPCS: 99284

== ENCOUNTER 2016-04-20 01:18 | Emergency (ER) | payer SELFPAY ==
[2016-04-20 01:47] VITALS: BP 134/68
[2016-04-20 04:04] LABS: ABSOLUTE BASOPHILS # (AUTO) 0.1 10^3/uL (0.0-0.2); ABSOLUTE EOSINOPHILS # (AUTO) 0.4 10^3/uL (0.0-0.6); ABSOLUTE LYMPHOCYTES (AUTO) 3.2 10^3/uL (0.5-4.7); ABSOLUTE MONOCYTES (AUTO) 0.7 10^3/uL (0.1-1.4); ABSOLUTE NEUT (AUTO) 4.3 10^3/uL (1.7-8.2); BASOPHILS % (AUTO) 0.8 % (0-2); EOSINOPHILS % (AUTO) 4.7 % (0-6); HEMATOCRIT 45.5 % (37.9-51.0); HEMOGLOBIN 15.5 g/dL (13.5-17.0); LYMPHOCYTES % (AUTO) 36.6 % (13-45); MEAN CORPUSCULAR HEMOGLOBIN 28.4 pg (27.0-33.4); MEAN CORPUSCULAR HGB CONC 34.1 g/dL (32.0-36.0); MEAN CORPUSCULAR VOLUME 83 fl (80-97); MONOCYTES % (AUTO) 8.4 % (3-13); RED BLOOD COUNT 5.47 10^6/uL (4.35-5.55); SEGMENTED NEUTROPHILS % (AUTO) 49.5 % (42-78); WHITE BLOOD COUNT 8.7 10^3/uL (4.0-10.5)
[2016-04-20 04:16] LABS: ALANINE AMINOTRANSFERASE 36 U/L (21-72); ALBUMIN 4.7 g/dL (3.5-5.0); ALKALINE PHOSPHATASE 60 U/L (38-126); ANION GAP 12 (5-19); ASPARTATE AMINO TRANSFERASE 25 U/L (17-59); BILIRUBIN,TOTAL 0.5 mg/dL (0.2-1.3); BLOOD UREA NITROGEN 10 mg/dL (7-20); CALCIUM 10.1 mg/dL (8.4-10.2); CARBON DIOXIDE 28 mmol/L (22-30); CHLORIDE 100 mmol/L (98-107); CREATININE RESULT 0.87 mg/dL (0.52-1.25); GLUCOSE 90 mg/dL (75-110); LIPASE 103.1 U/L (23-300); SODIUM 140.3 mmol/L (137-145); TOTAL PROTEIN 7.2 g/dL (6.3-8.2)
[2016-04-20] MEDS ORDERED: ONDANSETRON 4 MG TAB.RAPDIS PO ONE (04:21)
[2016-04-20 04:23] LABS: APPEARANCE,URINE CLEAR; BILIRUBIN,URINE NEGATIVE (NEGATIVE); GLUCOSE, URINE NEGATIVE (NEGATIVE); KETONES,URINE NEGATIVE (NEGATIVE); LEUKOCYTE ESTERASE,URINE NEGATIVE (NEGATIVE); NITRITE,URINE NEGATIVE (NEGATIVE); PROTEIN,URINE NEGATIVE (NEGATIVE); URINE SPECIFIC GRAVITY 1.014; UROBILINOGEN,URINE NEGATIVE mg/dL (<2.0)
--- NOTE | 2016-04-20 05:29 | ER Document Report ---
ED General - General Chief Complaint: Abdominal Pain Stated Complaint: STOMACH PAIN Notes: Patient is a 30-year-old male who presents with complaint of feeling nauseous. She was felt nauseous for the last 24 hours. He has not vomited. He has no social abdominal pain. No says his sore throat. No fevers. Some cough. No congestion. He does smoke. Has no other complaints at this time. TRAVEL OUTSIDE OF THE [place] IN LAST 30 DAYS: No - Related Data Allergies/Adverse Reactions: poison veronica extract [Poison Veronica Extract] Allergy (Verified 03/29/16 14:52) poison oak extract [Poison [place] Extract] Allergy (Verified 03/29/16 14:52) Past Medical History - Social History Smoking Status: Current Every Day Smoker Frequency of alcohol use: None Drug Abuse: None Family History: Reviewed & Not Pertinent Patient has suicidal ideation: No Patient has homicidal ideation: No - Past Medical History Cardiac Medical History: Denies: Hx Coronary Artery Disease, Hx Hypertension, Hx Pulmonary Embolism Pulmonary Medical History: Reports: Hx Asthma, Hx Bronchitis, Hx COPD, Hx Pneumonia Denies: Hx Respiratory Failure, Hx Sleep Apnea, Hx Tuberculosis Endocrine Medical History: Denies: Hx Diabetes Mellitus Type 1, Hx Diabetes Mellitus Type 2 Renal/ Medical History: Denies: Hx Peritoneal Dialysis Malignancy Medical History: Denies Hx Lung Cancer Psychiatric Medical History: Reports: Hx Attention Deficit Hyperactivity Disorder Denies: Hx Anxiety, Hx Bipolar Disorder, Hx Depression, Hx Schizophrenia Past Surgical History: Reports: Hx Tonsillectomy. Denies: Hx Pacemaker - Immunizations Immunizations up to date: Yes Hx Diphtheria, Pertussis, Tetanus Vaccination: Yes Review of Systems - Review of Systems Notes: My Normal Review Basic REVIEW OF SYSTEMS: CONSTITUTIONAL : Denies fever, chills, or sweats. Denies recent illness. EENT: Denies eye, ear, throat, or mouth pain or symptoms. Denies nasal or sinus congestion. RESPIRATORY: Mild cough which the patient says he always has. Denies shortness of breath, difficulty breathing, or wheezing. GASTROINTESTINAL: Denies abdominal pain. Some nausea. No vomiting. No diarrhea.. Denies constipation. Last BM: GENITOURINARY: Denies difficulty urinating, painful urination, burning, frequency, or blood in urine. MUSCULOSKELETAL: Denies neck or back pain or joint pain or swelling. SKIN: Denies rash or skin lesions. NEUROLOGICAL: Denies altered mental status or loss of consciousness. Denies headache. Denies weakness or paralysis or loss of use of either side. Denies problems with gait or speech. Denies sensory or motor loss. ALL OTHER SYSTEMS REVIEWED AND NEGATIVE. Physical Exam - Vital signs Vitals: Temp Pulse BP Pulse Ox 97.7 F 78 134/68 H 96 04/20/16 01:39 04/20/16 01:39 04/20/16 01:39 04/20/16 01:39 - Notes Notes: General Appearance: Well nourished, alert, cooperative, no acute distress, no obvious discomfort. Well-appearing. Vitals: reviewed, See vital signs table. Head: no swelling or tenderness to the head Eyes: PERRL, EOMI, Conjuctiva clear Mouth: No decreasd moisture Throat: No tonsillar inflammation, No airway obstruction, No lymphadenopathy Neck: Supple, no neck tenderness Lungs: No wheezing, No rales, No rhonci, No accessory muscle use, good air exchange bilaterally. Heart: Normal rate, Regular rythm, No murmur, no rub Abdomen: Normal BS, soft, No rigidity, No abdominal tenderness to palpation, No guarding, no rebound, no abdominal masses, no organomegaly Extremities: strength 5/5 in all extremities, good pulses in all extremities, no swelling or tenderness in the extremities, no edema. Skin: warm, dry, appropriate color, no rash Neuro: speech clear, oriented x 3, normal affect, responds appropriately to questions. Course - Vital Signs Vital signs: Temp Pulse Resp BP Pulse Ox 97.8 F 80 16 134/68 H 100 04/20/16 05:52 04/20/16 05:52 04/20/16 05:52 04/20/16 01:39 04/20/16 05:52 - Laboratory Result Diagrams: 04/20/16 03:40 04/20/16 03:40 Laboratory results interpreted by me: 04/20/16 03:40 Urine Ascorbic Acid 40 H - Transfer of Care Notes: 04/20/16 06:28 Patient is well-appearing. For the patient is safe to be discharged home. He' s had no vomiting. Most of time is spent in the ER he is actually sleeping. She comes to the ER multiple times a month for different complaints. He is not septic or toxic appearing. Patient initially told me he was very nauseous. As I was walking away from him after initial evaluation he asked me if I would get a meal. I informed him that it would not make sense for me to give him a bunch of food before I even give him any nausea medication being that he is here for nausea. I have given him some Zofran. He's had no vomiting. He looks well. His laboratory evaluation is unremarkable. His throat is normal appearing. There is no pharyngeal erythema. I feel he is safe to be discharged home. Patient will be discharged home with Zofran. Dictation of this chart was performed using voice recognition software; therefore, there may be some unintended grammatical errors. Discharge - Discharge Clinical Impression: Nausea, Sore throat Condition: Good Disposition: HOME, SELF-CARE Additional Instructions: Your blood work showed no abnormality. Please take the Zofran as 1 tablet dissolved in your mouth every 4 hours as needed for any nausea. Please drink clear liquids and eat very bland food over the next several days. Please return to the ER immediately if you have abdominal pain, fevers, blood in your stool, vomit blood, or feel unwell. Please follow-up with a physician 2 days for reevaluation. Forms: Smoking Cessation Education
== END 2016-04-20 05:52 | disposition home or self-care (01) ==
LOC: ER 01:18
DX: R11.0 Nausea (principal); J02.9 Acute pharyngitis, unspecified; R05 Cough; F17.200 Nicotine dependence, unspecified, uncomplicated; J44.9 Chronic obstructive pulmonary disease, unspecified; J45.909 Unspecified asthma, uncomplicated; Z91.048 Other nonmedicinal substance allergy status
CPT/HCPCS: 99284; 36415; 83690; 85025; 80053; 81001; S0119

== ENCOUNTER 2016-04-21 22:58 | Emergency (ER) | payer SELFPAY ==
[2016-04-21 23:38] LABS: ABSOLUTE BASOPHILS # (AUTO) 0.1 10^3/uL (0.0-0.2); ABSOLUTE EOSINOPHILS # (AUTO) 0.3 10^3/uL (0.0-0.6); ABSOLUTE MONOCYTES (AUTO) 0.6 10^3/uL (0.1-1.4); ABSOLUTE NEUT (AUTO) 4.2 10^3/uL (1.7-8.2); BASOPHILS % (AUTO) 1.2 % (0-2); EOSINOPHILS % (AUTO) 4.6 % (0-6); HEMATOCRIT 43.7 % (37.9-51.0); HEMOGLOBIN 14.6 g/dL (13.5-17.0); HGB HCT DIFFERENCE 0.1; LYMPHOCYTES % (AUTO) 27.7 % (13-45); MEAN CORPUSCULAR HGB CONC 33.4 g/dL (32.0-36.0); MEAN CORPUSCULAR VOLUME 84 fl (80-97); MONOCYTES % (AUTO) 8.2 % (3-13); RED BLOOD COUNT 5.21 10^6/uL (4.35-5.55); RED CELL DISTRIBUTION WIDTH 13.1 % (11.5-14.0); SEGMENTED NEUTROPHILS % (AUTO) 58.3 % (42-78); WHITE BLOOD COUNT 7.1 10^3/uL (4.0-10.5)
[2016-04-22 03:46] LABS: ALANINE AMINOTRANSFERASE 37 U/L (21-72); ALBUMIN 4.3 g/dL (3.5-5.0); ALKALINE PHOSPHATASE 58 U/L (38-126); ANION GAP 10 (5-19); ASPARTATE AMINO TRANSFERASE 25 U/L (17-59); BILIRUBIN,TOTAL 0.5 mg/dL (0.2-1.3); BLOOD UREA NITROGEN 15 mg/dL (7-20); CALCIUM 9.7 mg/dL (8.4-10.2); CARBON DIOXIDE 29 mmol/L (22-30); CHLORIDE 101 mmol/L (98-107); CREATININE RESULT 1.06 mg/dL (0.52-1.25); GLUCOSE 96 mg/dL (75-110); LIPASE 132.7 U/L (23-300); POTASSIUM 4.3 mmol/L (3.6-5.0); SODIUM 140.3 mmol/L (137-145); TOTAL PROTEIN 6.9 g/dL (6.3-8.2)
--- NOTE | 2016-04-22 06:44 | ER Document Report ---
ED GI/ - General Chief Complaint: Abdominal Pain Stated Complaint: STOMACH PAIN Mode of Arrival: Ambulatory Information source: Patient Notes: 30-year-old male presents to the emergency department complaining of intermittent episodes of mid abdominal pain and loose stools. Patient is poor historian and is well-known to this emergency department due to frequent visits for similar nonspecific symptoms. Upon further questioning patient reports did not have a place to stay this evening and wanted a warm place to sleep. Patient denies fever, vomiting, blood in stool, chest pain or shortness of breath. TRAVEL OUTSIDE OF THE [place] IN LAST 30 DAYS: No - HPI Patient complains to provider of: Abdominal pain, Diarrhea Onset: Yesterday Timing/Duration: Intermittent, Persistent Quality of pain: Achy, Burning Severity at maximum: Mild Severity in ED: None Pain Level: Denies Similar symptoms previously: Yes Recently seen / treated by doctor: Yes - Related Data Allergies/Adverse Reactions: poison veronica extract [Poison Veronica Extract] Allergy (Verified 03/29/16 14:52) poison oak extract [Poison [place] Extract] Allergy (Verified 03/29/16 14:52) Past Medical History - General Information source: Patient - Social History Smoking Status: Never Smoker Chew tobacco use (# tins/day): No Frequency of alcohol use: None Drug Abuse: None Lives with: Family Family History: Reviewed & Not Pertinent Patient has suicidal ideation: No Patient has homicidal ideation: No - Past Medical History Cardiac Medical History: Denies: Hx Coronary Artery Disease, Hx Hypertension, Hx Pulmonary Embolism Pulmonary Medical History: Reports: Hx Asthma, Hx Bronchitis, Hx Pneumonia Denies: Hx Respiratory Failure, Hx Sleep Apnea, Hx Tuberculosis Endocrine Medical History: Denies: Hx Diabetes Mellitus Type 1, Hx Diabetes Mellitus Type 2 Renal/ Medical History: Denies: Hx Peritoneal Dialysis Malignancy Medical History: Denies Hx Lung Cancer Psychiatric Medical History: Reports: Hx Attention Deficit Hyperactivity Disorder Denies: Hx Anxiety, Hx Bipolar Disorder, Hx Depression, Hx Schizophrenia Past Surgical History: Reports: Hx Tonsillectomy. Denies: Hx Pacemaker - Immunizations Immunizations up to date: Yes Hx Diphtheria, Pertussis, Tetanus Vaccination: Yes Review of Systems - Review of Systems Constitutional: No symptoms reported EENT: No symptoms reported Cardiovascular: No symptoms reported Respiratory: No symptoms reported Gastrointestinal: See HPI Genitourinary: No symptoms reported Male Genitourinary: No symptoms reported Musculoskeletal: No symptoms reported Skin: No symptoms reported Hematologic/Lymphatic: No symptoms reported Neurological/Psychological: No symptoms reported -: Yes All other systems reviewed and negative Physical Exam - Vital signs Interpretation: Normal - General General appearance: Appears well, Alert In distress: None - HEENT Head: Normocephalic, Atraumatic Eyes: Normal Pupils: PERRL - Respiratory Respiratory status: No respiratory distress Chest status: Nontender Breath sounds: Normal - CTAB Chest palpation: Normal - Cardiovascular Rhythm: Regular Heart sounds: Normal auscultation Murmur: No Pulses: Normal: Radial Normal capillary refill: Yes - Abdominal Inspection: Normal Distension: No distension Bowel sounds: Normal Tenderness: Nontender. No: Tender, McBurney's point, Ness's sign, Guarding, Rebound, Other Organomegaly: No organomegaly - Back Back: Normal, Nontender - Extremities General upper extremity: Normal inspection, Nontender, Normal color, Normal ROM , Normal strength, Normal temperature. No: Edema General lower extremity: Normal inspection, Nontender, Normal color, Normal ROM , Normal strength, Normal temperature, Normal weight bearing. No: Edema, Kush' s sign - Neurological Neuro grossly intact: Yes Cognition: Normal Orientation: AAOx4 [place] Coma Scale Eye Opening: Spontaneous [place] Coma Scale Verbal: Oriented [place] Coma Scale Motor: Obeys Commands [place] Coma Scale Total: 15 Speech: Normal Motor strength normal: LUE, RUE, LLE, RLE Sensory: Normal - Psychological Associated symptoms: Normal affect, Normal mood - Skin Skin Temperature: Warm Skin Moisture: Dry Skin Color: Normal Course - Re-evaluation Re-evalutation: 04/22/16 04:35 Patient hemodynamically stable, in no distress, afebrile, nontoxic, and appears well-hydrated. Patient tolerating oral fluids and solids without difficulty or vomiting. Labs unremarkable. The patient presents with abdominal pain without signs of peritonitis or other life-threatening or serious etiology. The patient appears stable for discharge and has been instructed to return immediately if the symptoms worsen in any way. - Laboratory Result Diagrams: 04/21/16 23:21 04/21/16 23:21 Discharge - Discharge Clinical Impression: Abdominal pain Qualifiers: Abdominal location: generalized Qualified Code(s): R10.84 - Generalized abdominal pain Condition: Stable Disposition: HOME, SELF-CARE Additional Instructions: ABDOMINAL PAIN: There are many causes of abdominal pain. Pain can mean a serious problem requiring surgery (such as appendicitis). It can also be an innocent problem that goes away on its own (such as a viral infection). Often, time must pass to determine the cause of pain. The physician does not feel that hospitalization is necessary, at present. Things may change within the next 24 hours. Call the doctor or come back for re- examination if any problems occur, such as: (1) Pain that becomes more severe, steady, or becomes concentrated in one specific area. Also, pain that is more severe with movement or coughing. (2) Vomiting that persists or becomes more frequent. (3) Blood in the vomitus, urine, or bowel movements. Blood in the stool may have a tarry or black appearance. (4) Shaking chills or fever greater than 100 degrees F. (5) The abdomen becomes more distended or swollen. (6) Bowel movements cease. (7) Failure to improve as expected. VOMITING: Vomiting (or nausea without vomiting) can be caused by many other different problems. It can mean that something's wrong with the stomach, such as ulcers or inflammation or the intestinal tract, such as appendicitis. But it can also be a symptom of a problem that has nothing to do with the stomach or intestines. Vomiting is common with severe headaches, earaches, tonsillitis, and kidney infections, etc. We see it with pneumonia or heart attacks. Drugs can cause nausea and vomiting. Many abdominal problems cause vomiting; for example, gallstones, kidney stones, pancreatitis, and intestinal obstruction ( blocked bowels). In most cases, curing the vomiting depends on fixing the problem that caused it. For temporary relief, we may use an anti-nausea medicine. For home use, we can prescribe suppositories, chewable pills, pills that dissolve in the mouth, or liquid anti-nausea drugs. If the vomiting seems to be caused by a problem in the stomach, acid-suppressing drugs may be prescribed as well. It's important to avoid dehydration. Sip small amounts of clear liquids ( soft drinks, tea, broth, etc) . Try to take fluids frequently even if you are vomiting to prevent dehydration. Take increasing amounts of fluid and when liquids are being consumed successfully, advance to small amounts of bland food (toast, soups, mashed potatoes, etc.) until you are able to resume a regular diet. Avoid aspirin, tobacco, and alcohol. If the vomiting worsens, if the problem that's making you vomit worsens, or if there's evidence of bleeding in the stomach (such as black, tarry stool, or bloody or black vomit), you should return immediately. Also, return if abdominal pain worsens or becomes localized to one area or you develop high fever. Call your doctor if you aren't improved in 24 hours. DIARRHEA, NON-SPECIFIC: Diarrhea means frequent, watery stools. There are many causes. Any problem that keeps the intestinal tract from absorbing water from the stool can lead to diarrhea. A sudden new diarrhea problem is usually caused by a virus, food sensitivity, toxic bacteria, or drugs. In this case, we expect the problem to go away soon. Testing is done only if you seem seriously ill from the diarrhea. If you have chronic diarrhea, or diarrhea that keeps coming back, we need to find out why. Chronic diarrhea can be due to inflammation of the bowels such as Crohn's disease or ulcerative colitis, food sensitivity such as intolerance to lactose or wheat protein, irritable bowel syndrome, and other problems. If your diarrhea is a significant problem but it's not clear why you have it, we' ll refer you to a specialist for further testing. During an episode of diarrhea, drink small amounts (two to six ounces) of clear liquids (soft drinks, sport drinks, herb teas, broth, etc). Take fluids frequently to prevent dehydration. It's usually not a problem to take mild anti- diarrhea medication such as Kaopectate or Pepto-Bismol. As the diarrhea eases, advance to small amounts of bland food (mashed potato, toast) for 24 hours. Call the physician if blood appears in your vomit or stool, if vomiting lasts longer than 24 hours, if the abdominal pain worsens or becomes localized to one area, if you develop high fever, or if you become lightheaded and weak. FOLLOW-UP CARE: Drink plenty of fluids, particularly water. Follow-up with your primary care provider this week. Return to the Emergency Department for any worsening symptoms or concerns.
== END 2016-04-22 06:56 | disposition home or self-care (01) ==
LOC: ER 22:58
DX: R10.84 Generalized abdominal pain (principal); R19.7 Diarrhea, unspecified
CPT/HCPCS: 36415; 80053; 83690; 85025; 99284

== ENCOUNTER 2016-04-24 01:42 | Emergency (ER) | payer SELFPAY ==
--- NOTE | 2016-04-24 02:41 | ER Document Report ---
HPI - HPI Patient complains to provider of: digestive problem Onset: Other - Chronic Onset/Duration: Persistent Pain Level: Denies Context: 30-year-old male complaining of "digestive problems". He has diarrhea. No black or blood in stools. He presently is bleeding from his right nares and has difficulty following my instructions to hold his nostrils. he denies drug use or alcohol. He has been to the emergency room multiple times most recently April 20, April 21 with stomach problem chief complaint. No nausea or vomiting. No abdominal pain. He states he is homeless. He has a laptop computer on the bed that he keeps trying to use during the history. I asked him to lay down on the bed to examine his abdomen and he has difficulty understanding that instruction. Denies psychiatric history. After he applied pressure to his nostrils the bleeding did stop. Associated Symptoms: None Exacerbated by: Denies Relieved by: Denies Similar symptoms previously: Yes Recently seen / treated by doctor: Yes - ROS ROS below otherwise negative: Yes Systems Reviewed and Negative: Yes All other systems reviewed and negative - DERM Skin Color: Normal, [place] Past Medical History - General Information source: Patient - Social History Smoking Status: Never Smoker Chew tobacco use (# tins/day): No Frequency of alcohol use: Occasional Drug Abuse: None Family History: Reviewed & Not Pertinent Patient has suicidal ideation: No Patient has homicidal ideation: No Pulmonary Medical History: Reports: Hx Asthma, Hx Bronchitis, Hx COPD, Hx Pneumonia Renal/ Medical History: Denies: Hx Peritoneal Dialysis Psychiatric Medical History: Reports: Hx Attention Deficit Hyperactivity Disorder Past Surgical History: Reports: Hx Tonsillectomy - Immunizations Immunizations up to date: Yes Hx Diphtheria, Pertussis, Tetanus Vaccination: Yes Vertical Provider Document - CONSTITUTIONAL Agree With Documented VS: Yes Exam Limitations: No Limitations - INFECTION CONTROL TRAVEL OUTSIDE OF THE [place] IN LAST 30 DAYS: No - HEENT HEENT: Normocephalic, PERRLA. negative: Conjuctival Injection, Pharyngeal Erythema Notes: No posterior pharynx blood., inflamed right nasal septum which is most likely the source - NECK Neck: Supple. negative: Lymphadenopathy-Left, Lymphadenopathy-Right - RESPIRATORY Respiratory: Breath Sounds Normal, No Respiratory Distress O2 Sat by Pulse Oximetry: 98 - CARDIOVASCULAR Cardiovascular: Regular Rate, Regular Rhythm - GI/ABDOMEN Gastrointestinal: Abdomen Soft, Abdomen Non-Tender, No Organomegaly - BACK Back: Normal Inspection - MUSCULOSKELETAL/EXTREMETIES Musculoskeletal/Extremeties: EVGENY, FROM - NEURO Level of Consciousness: Awake, Alert Motor/Sensory: No Motor Deficit, No Sensory Deficit - DERM Integumentary: Warm, Dry, No Rash Course - Re-evaluation Re-evalutation: 04/24/16 04:09 Labs are normal he is sitting on the stretcher using a computer. He has not urinated I'm sending him home without the drug screen he has had a negative drug screen in the past. - Vital Signs Vital signs: Temp Pulse Resp BP Pulse Ox 98.7 F 82 20 132/82 H 98 04/24/16 02:24 04/24/16 02:24 04/24/16 02:24 04/24/16 02:24 04/24/16 02:24 - Laboratory Result Diagrams: 04/24/16 03:25 Discharge - Discharge Clinical Impression: Nosebleed, History of diarrhea Condition: Good Disposition: HOME, SELF-CARE Instructions: Nosebleed Instructions ([facility]), Diarrhea, Nonspecific ([facility]) Additional Instructions: to er if worse
[2016-04-24 03:38] LABS: ABSOLUTE BASOPHILS # (AUTO) 0.1 10^3/uL (0.0-0.2); ABSOLUTE EOSINOPHILS # (AUTO) 0.3 10^3/uL (0.0-0.6); ABSOLUTE LYMPHOCYTES (AUTO) 2.8 10^3/uL (0.5-4.7); ABSOLUTE MONOCYTES (AUTO) 0.6 10^3/uL (0.1-1.4); ABSOLUTE NEUT (AUTO) 3.7 10^3/uL (1.7-8.2); BASOPHILS % (AUTO) 0.7 % (0-2); EOSINOPHILS % (AUTO) 3.9 % (0-6); HEMOGLOBIN 14.8 g/dL (13.5-17.0); HGB HCT DIFFERENCE 0.4; LYMPHOCYTES % (AUTO) 37.4 % (13-45); MEAN CORPUSCULAR HEMOGLOBIN 28.2 pg (27.0-33.4); MEAN CORPUSCULAR HGB CONC 33.7 g/dL (32.0-36.0); MEAN CORPUSCULAR VOLUME 84 fl (80-97); MONOCYTES % (AUTO) 8.6 % (3-13); RED BLOOD COUNT 5.27 10^6/uL (4.35-5.55); RED CELL DISTRIBUTION WIDTH 13.2 % (11.5-14.0); SEGMENTED NEUTROPHILS % (AUTO) 49.4 % (42-78); WHITE BLOOD COUNT 7.5 10^3/uL (4.0-10.5)
[2016-04-24 03:45] LABS: PROTHROMBIN TIME 13.2 SEC (11.4-15.4)
[2016-04-24 03:46] LABS: PARTIAL THROMBOPLASTIN TIME 27.5 SEC (23.5-35.8)
[2016-04-24 08:29] VITALS: BP 138/66
== END 2016-04-24 04:22 | disposition home or self-care (01) ==
LOC: ER 01:42
DX: R19.7 Diarrhea, unspecified (principal); R04.0 Epistaxis; J31.0 Chronic rhinitis; J44.9 Chronic obstructive pulmonary disease, unspecified; Z59.0 Homelessness
CPT/HCPCS: 36415; 80307; 85025; 85610; 85730; 99283

== ENCOUNTER 2016-05-01 00:05 | Emergency (ER) | payer SELFPAY ==
[2016-05-01] MEDS ORDERED: DEXAMETHASONE SOD PHOS INJ 10 MG/1 ML VIAL IM ONE (01:56)
[2016-05-01] MEDS ORDERED: FAMOTIDINE 20 MG TABLET PO ONE (01:56)
[2016-05-01] MEDS ORDERED: DIPHENHYDRAMINE HCL 25 MG CAPSULE PO ONE (01:56)
--- NOTE | 2016-05-01 01:58 | ER Document Report ---
ED Skin Rash/Insect Bite/Abscs - General Chief Complaint: Skin Problem Stated Complaint: POSSIBLE ALLERGIC REACTION Time seen by provider: 01:50 Notes: Patient is a 30-year-old male that comes emergency department for chief complaint of an itchy rash is mainly on his arms but also somewhat on his abdomen, he states the rash started yesterday, he denies any obvious allergic contacts, he denies being in the [place], he denies any new foods or anything obvious. He denies any vocally swallowing or breathing, denies any facial swelling or discomfort, he denies any other symptoms. TRAVEL OUTSIDE OF THE [place] IN LAST 30 DAYS: No - Related Data Allergies/Adverse Reactions: poison veronica extract [Poison Veronica Extract] Allergy (Verified 04/24/16 02:32) poison oak extract [Poison [place] Extract] Allergy (Verified 04/24/16 02:32) Past Medical History - General Information source: Patient - Social History Smoking Status: Never Smoker Chew tobacco use (# tins/day): No Frequency of alcohol use: None Drug Abuse: None Lives with: Family Family History: Reviewed & Not Pertinent Patient has suicidal ideation: No Patient has homicidal ideation: No - Past Medical History Cardiac Medical History: Denies: Hx Coronary Artery Disease, Hx Hypertension, Hx Pulmonary Embolism Pulmonary Medical History: Reports: Hx Asthma, Hx Bronchitis, Hx COPD, Hx Pneumonia Denies: Hx Respiratory Failure, Hx Sleep Apnea, Hx Tuberculosis Endocrine Medical History: Denies: Hx Diabetes Mellitus Type 1, Hx Diabetes Mellitus Type 2 Renal/ Medical History: Denies: Hx Peritoneal Dialysis Malignancy Medical History: Denies Hx Lung Cancer Psychiatric Medical History: Reports: Hx Attention Deficit Hyperactivity Disorder Denies: Hx Anxiety, Hx Bipolar Disorder, Hx Depression, Hx Schizophrenia Past Surgical History: Reports: Hx Tonsillectomy. Denies: Hx Pacemaker - Immunizations Immunizations up to date: Yes Hx Diphtheria, Pertussis, Tetanus Vaccination: Yes Review of Systems - Review of Systems Constitutional: No symptoms reported EENT: No symptoms reported Cardiovascular: No symptoms reported Respiratory: No symptoms reported Gastrointestinal: No symptoms reported Genitourinary: No symptoms reported Male Genitourinary: No symptoms reported Musculoskeletal: No symptoms reported Skin: See HPI Hematologic/Lymphatic: No symptoms reported Neurological/Psychological: No symptoms reported Physical Exam - Vital signs Vitals: Temp Pulse Resp BP Pulse Ox 99.1 F 95 16 146/84 H 98 05/01/16 00:40 05/01/16 00:40 05/01/16 00:40 05/01/16 00:40 05/01/16 00:40 Interpretation: Normal - General General appearance: Appears well, Alert In distress: None - HEENT Head: Normocephalic, Atraumatic Eyes: Normal Pupils: PERRL Mucous membranes: Normal Pharynx: Normal Neck: Normal - Respiratory Respiratory status: No respiratory distress Chest status: Nontender Breath sounds: Normal Chest palpation: Normal - Cardiovascular Rhythm: Regular Heart sounds: Normal auscultation Murmur: No - Abdominal Inspection: Normal Distension: No distension Bowel sounds: Normal Tenderness: Nontender Organomegaly: No organomegaly - Back Back: Normal, Nontender - Extremities General upper extremity: Normal inspection, Nontender, Normal color, Normal ROM , Normal temperature General lower extremity: Normal inspection, Nontender, Normal color, Normal ROM , Normal temperature, Normal weight bearing. No: Kush's sign - Neurological Neuro grossly intact: Yes Cognition: Normal Orientation: AAOx4 [place] Coma Scale Eye Opening: Spontaneous Paula Coma Scale Verbal: Oriented [place] Coma Scale Motor: Obeys Commands Paula Coma Scale Total: 15 Speech: Normal Motor strength normal: LUE, RUE, LLE, RLE Sensory: Normal - Psychological Associated symptoms: Normal affect, Normal mood - Skin Skin Temperature: Warm Skin Moisture: Dry Skin Color: Normal Skin irregularity: Rash - Patient has a patchy macular rash on the inner part of both arms, mildly excoriated over the areas, no induration, pustules, fluctuance, papules, or evidence of bites Course - Re-evaluation Re-evalutation: Mucous membranes clear, lungs clear, patient with an irritated excoriated rash which appears to be either contact dermatitis or an allergic reaction. Patient hesitant about talking about whether he will fill prescribed medications, as a result he was given a shot of dexamethasone along with antihistamines, discussed treatment, follow-up, return precautions. Patient states understanding and agreement. - Vital Signs Vital signs: Temp Pulse Resp BP Pulse Ox 98.3 F 87 16 134/77 H 99 05/01/16 03:19 05/01/16 03:19 05/01/16 03:19 05/01/16 03:19 05/01/16 03:19 Discharge - Discharge Clinical Impression: Skin rash Condition: Stable Disposition: HOME, SELF-CARE Additional Instructions: Examination shows dermatitis, contact dermatitis versus allergic reaction. You have been treated for the skin rash today, fill and take the medications prescribed, avoid scratching your skin as this can lead to infection. Take the medications for 7 days. Follow-up with primary care. Return immediately if you develop any concerning or worsening symptoms including swelling of the face or mouth, difficulty breathing, etc. Prescriptions: Cetirizine HCl [Zyrtec 10 mg Tablet] 1 tab PO DAILY #30 tablet Famotidine [Pepcid 20 mg Tablet] 20 mg PO BID #14 tablet
[2016-05-01 03:19] VITALS: BP 134/77
== END 2016-05-01 03:20 | disposition home or self-care (01) ==
LOC: ER 00:05
DX: R21 Rash and other nonspecific skin eruption (principal); L29.8 Other pruritus; J44.9 Chronic obstructive pulmonary disease, unspecified; Z91.048 Other nonmedicinal substance allergy status
CPT/HCPCS: 99282; 96372; J1100

== ENCOUNTER 2016-05-09 00:11 | Emergency (ER) | payer SELFPAY ==
--- NOTE | 2016-05-09 06:14 | ER Document Report ---
ED General - General Mode of Arrival: Ambulatory Information source: Patient TRAVEL OUTSIDE OF THE [place] IN LAST 30 DAYS: No - HPI Patient complains to provider of: Allergies Onset: Yesterday Onset/Duration: Gradual, Persistent Quality of pain: No pain Associated symptoms: Sinus pain/drainage - General Chief Complaint: Other Stated Complaint: ALLERGIES Notes: Patient is a 30-year-old male presenting to the emergency department concerned of seasonal allergies that began bothering him yesterday. Patient was sound asleep when we came in for the exam, and states that he has a little bit of sinus pressure and a runny nose. Patient denies taking any medication for his allergies. Patient also states that he has quit smoking "a while ago". (DEMETIRO [place]O) - Related Data Allergies/Adverse Reactions: poison veronica extract [Poison Veronica Extract] Allergy (Verified 05/09/16 01:19) poison oak extract [Poison [place] Extract] Allergy (Verified 05/09/16 01:19) Home Medications: Current Home Medications No Home Medications 05/09/16 [History] Past Medical History - General Information source: Patient - Social History Smoking Status: Former Smoker - "quit a while ago" Family History: Reviewed & Not Pertinent Patient has suicidal ideation: No Patient has homicidal ideation: No - Past Medical History Cardiac Medical History: Denies: Hx Coronary Artery Disease, Hx Hypertension, Hx Pulmonary Embolism Pulmonary Medical History: Reports: Hx Asthma, Hx Bronchitis, Hx COPD, Hx Pneumonia Denies: Hx Respiratory Failure, Hx Sleep Apnea, Hx Tuberculosis Endocrine Medical History: Denies: Hx Diabetes Mellitus Type 1, Hx Diabetes Mellitus Type 2 Renal/ Medical History: Denies: Hx Peritoneal Dialysis Malignancy Medical History: Denies Hx Lung Cancer Psychiatric Medical History: Reports: Hx Attention Deficit Hyperactivity Disorder Past Surgical History: Reports: Hx Tonsillectomy. Denies: Hx Pacemaker - Immunizations Immunizations up to date: Yes Hx Diphtheria, Pertussis, Tetanus Vaccination: Yes Review of Systems - Review of Systems Constitutional: No symptoms reported EENT: See HPI, Nose congestion, Sinus pressure Cardiovascular: No symptoms reported Respiratory: No symptoms reported Gastrointestinal: No symptoms reported Genitourinary: No symptoms reported Male Genitourinary: No symptoms reported Musculoskeletal: No symptoms reported Skin: No symptoms reported Hematologic/Lymphatic: No symptoms reported Neurological/Psychological: No symptoms reported -: Yes All other systems reviewed and negative Physical Exam - Vital signs Interpretation: Normal - General General appearance: Appears well, Alert In distress: None - HEENT Head: Normocephalic, Atraumatic Eyes: Normal Pupils: PERRL Nasal: Other - Congestion - Respiratory Respiratory status: No respiratory distress Chest status: Nontender Breath sounds: Normal Chest palpation: Normal - Cardiovascular Rhythm: Regular Heart sounds: Normal auscultation Murmur: No - Abdominal Inspection: Normal Distension: No distension Bowel sounds: Normal Tenderness: Nontender Organomegaly: No organomegaly - Back Back: Normal, Nontender - Extremities General upper extremity: Normal inspection, Nontender General lower extremity: Normal inspection, Nontender - Neurological Neuro grossly intact: Yes Cognition: Normal [place] Coma Scale Eye Opening: Spontaneous [place] Coma Scale Verbal: Oriented [place] Coma Scale Motor: Obeys Commands [place] Coma Scale Total: 15 Speech: Normal - Psychological Associated symptoms: Normal affect, Normal mood - Skin Skin Temperature: Warm Skin Moisture: Dry Skin Color: Normal - Vital signs Vitals: Temp Pulse Resp BP Pulse Ox 98.2 F 68 16 118/69 99 05/09/16 01:20 05/09/16 01:20 05/09/16 01:20 05/09/16 01:20 05/09/16 01:20 Discharge - Discharge Clinical Impression: Environmental allergies Condition: Stable Disposition: HOME, SELF-CARE Additional Instructions: You may buy generic Claritin [id number] at [facility] to treat your symptoms. Follow-up with a local medical doctor as needed. Scribe Attestation: 05/09/16 07:04 I personally performed the services described in the documentation, reviewed and edited the documentation which was dictated to the scribe in my presence, and it accurately records my words and actions. (ALEJANDRO LAWRENCE) Scribe Documentation - Scribe Written by Марина:: Demetrio [place] 05/09/2016 0614 acting as scribe for :: Surendra
[2016-05-09] MEDS ORDERED: LORATADINE 10 MG TABLET PO ONE (07:02)
[2016-05-09 07:11] VITALS: BP 121/81
== END 2016-05-09 07:13 | disposition home or self-care (01) ==
LOC: ER 00:11
DX: J44.9 Chronic obstructive pulmonary disease, unspecified (principal); R09.89 Other specified symptoms and signs involving the circulatory and respiratory systems; J34.89 Other specified disorders of nose and nasal sinuses; R09.81 Nasal congestion; Z87.891 Personal history of nicotine dependence; Z91.048 Other nonmedicinal substance allergy status
CPT/HCPCS: 99283

== ENCOUNTER 2016-05-11 23:42 | Emergency (ER) | payer SELFPAY ==
[2016-05-12] MEDS ORDERED: FAMOTIDINE 20 MG TABLET PO ONE (02:17)
[2016-05-12] MEDS ORDERED: PREDNISONE 20 MG TABLET PO ONE (02:17)
[2016-05-12] MEDS ORDERED: DIPHENHYDRAMINE HCL 25 MG CAPSULE PO ONE (02:17)
--- NOTE | 2016-05-12 07:03 | ER Document Report ---
ED ENT - General Chief Complaint: Cough Stated Complaint: COUGH,RUNNY NOSE,SNEEZING Mode of Arrival: Ambulatory Information source: Patient Notes: 30-year-old very well-appearing male presents to the emergency department complaining of intermittently persistent runny nose over the last 2-3 weeks. Reports symptoms seems to have begun with the increased pollen. Reports associated itchy nose and eyes. States symptoms seem to be worse in the mornings or when he is outside. Denies fever, difficulty breathing or swallowing, eye swelling, drainage, or vision changes. Patient is very well- known to this ED due to frequent visits for nonspecific complaints. TRAVEL OUTSIDE OF THE [place] IN LAST 30 DAYS: No - HPI Patient complains to provider of: Nose problem Onset/Duration: Intermittent, Persistent Severity: Mild Pain Level: Denies Context: Allergies Location of pain: Nose, Sinus Similar symptoms previously: Yes Recently seen / treated by doctor: Yes - Related Data Allergies/Adverse Reactions: poison veronica extract [Poison Veronica Extract] Allergy (Verified 05/12/16 00:51) poison oak extract [Poison [place] Extract] Allergy (Verified 05/12/16 00:51) Past Medical History - General Information source: Patient - Social History Smoking Status: Former Smoker Frequency of alcohol use: None Drug Abuse: None Lives with: Alone Family History: Reviewed & Not Pertinent Patient has suicidal ideation: No Patient has homicidal ideation: No - Past Medical History Cardiac Medical History: Denies: Hx Coronary Artery Disease, Hx Hypertension, Hx Pulmonary Embolism Pulmonary Medical History: Reports: Hx Asthma, Hx Bronchitis, Hx COPD, Hx Pneumonia Denies: Hx Respiratory Failure, Hx Sleep Apnea, Hx Tuberculosis Endocrine Medical History: Denies: Hx Diabetes Mellitus Type 1, Hx Diabetes Mellitus Type 2 Renal/ Medical History: Denies: Hx Peritoneal Dialysis Malignancy Medical History: Denies Hx Lung Cancer Psychiatric Medical History: Reports: Hx Attention Deficit Hyperactivity Disorder Denies: Hx Anxiety, Hx Bipolar Disorder, Hx Depression, Hx Schizophrenia Past Surgical History: Reports: Hx Tonsillectomy. Denies: Hx Pacemaker - Immunizations Immunizations up to date: Yes Hx Diphtheria, Pertussis, Tetanus Vaccination: Yes Review of Systems - Review of Systems Constitutional: No symptoms reported EENT: See HPI Cardiovascular: No symptoms reported Respiratory: No symptoms reported Gastrointestinal: No symptoms reported Genitourinary: No symptoms reported Male Genitourinary: No symptoms reported Musculoskeletal: No symptoms reported Skin: No symptoms reported Hematologic/Lymphatic: No symptoms reported Neurological/Psychological: No symptoms reported -: Yes All other systems reviewed and negative Physical Exam - Vital signs Vitals: Temp Pulse Resp BP Pulse Ox 98.1 F 85 14 129/73 H 99 05/12/16 00:52 05/12/16 00:52 05/12/16 00:52 05/12/16 00:52 05/12/16 00:52 - General General appearance: Appears well, Alert In distress: None - HEENT Head: Normocephalic, Atraumatic Eyes: Normal Conjunctiva: Normal Eyelashes: Normal Pupils: PERRL Visual zarate normal: Yes Ears: Normal External canal: Normal Tympanic membrane: Normal Sinus: Normal. No: Tenderness Nasal: Clear rhinorrhea. No: Bloody discharge, Purulent discharge Mouth/Lips: Normal Mucous membranes: Normal, Moist Pharynx: Normal Neck: Normal - Respiratory Respiratory status: No respiratory distress Chest status: Nontender Breath sounds: Normal - CTAB Chest palpation: Normal - Cardiovascular Rhythm: Regular Heart sounds: Normal auscultation Murmur: No Pulses: Normal: Radial Normal capillary refill: Yes - Abdominal Inspection: Normal Distension: No distension Bowel sounds: Normal Tenderness: Nontender Organomegaly: No organomegaly - Back Back: Normal, Nontender - Extremities General upper extremity: Normal inspection, Nontender, Normal color, Normal ROM , Normal temperature General lower extremity: Normal inspection, Nontender, Normal color, Normal ROM , Normal temperature, Normal weight bearing - Neurological Neuro grossly intact: Yes Cognition: Normal Orientation: AAOx4 [place] Coma Scale Eye Opening: Spontaneous Paula Coma Scale Verbal: Oriented [place] Coma Scale Motor: Obeys Commands [place] Coma Scale Total: 15 Speech: Normal Motor strength normal: LUE, RUE, LLE, RLE Sensory: Normal - Skin Skin Temperature: Warm Skin Moisture: Dry Skin Color: Normal Course - Re-evaluation Re-evalutation: 05/12/16 03:30 Patient very well-appearing, hemodynamically stable, in no distress, afebrile, nontoxic, and appears well-hydrated. Patient presentation and findings suggestive of mild allergic rhinitis with no indication of sinusitis or other significant infectious etiology at this time. Patient appears stable for discharge and agrees with care, follow-up, and ED return precautions. - Vital Signs Vital signs: Temp Pulse Resp BP Pulse Ox 97.6 F 68 17 122/88 H 96 05/12/16 07:20 05/12/16 07:20 05/12/16 07:20 05/12/16 07:20 05/12/16 07:20 Discharge - Discharge Clinical Impression: Environmental allergies Allergic rhinitis Qualifiers: Allergic rhinitis trigger: unspecified Allergic rhinitis seasonality: unspecified seasonality Qualified Code(s): J30.9 - Allergic rhinitis, unspecified Condition: Stable Disposition: HOME, SELF-CARE Instructions: Use of Diphenhydramine, Hay Fever ([facility]), OTC Antihistamines ([facility]) Additional Instructions: Follow-up with your primary care provider this week. Return to the emergency department for any worsening symptoms or concerns.
[2016-05-12 07:24] VITALS: BP 122/88
== END 2016-05-12 07:20 | disposition home or self-care (01) ==
LOC: ER 23:42
DX: J30.9 Allergic rhinitis, unspecified (principal); R05 Cough; J34.89 Other specified disorders of nose and nasal sinuses; J44.9 Chronic obstructive pulmonary disease, unspecified; Z91.048 Other nonmedicinal substance allergy status
CPT/HCPCS: 99283; J7512

== ENCOUNTER 2016-05-21 23:59 | Emergency (ER) | payer SELFPAY ==
[2016-05-22 00:06] VITALS: BP 135/85
--- NOTE | 2016-05-22 02:13 | ER Document Report ---
ED General - General Chief Complaint: Other Stated Complaint: NO COMPLAINTS Notes: The patient is a 30-year-old male, frequent ER visits, presents after his nose is itching. He was taking Benadryl with relief of his itchiness. He is not having any itchiness currently. Denies throat swelling, shortness of breath or wheezing. TRAVEL OUTSIDE OF THE [place] IN LAST 30 DAYS: No - Related Data Allergies/Adverse Reactions: poison veronica extract [Poison Veronica Extract] Allergy (Verified 05/12/16 00:51) poison oak extract [Poison [place] Extract] Allergy (Verified 05/12/16 00:51) Past Medical History - General Information source: Patient - Social History Smoking Status: Current Every Day Smoker Family History: Reviewed & Not Pertinent Patient has suicidal ideation: No Patient has homicidal ideation: No - Past Medical History Cardiac Medical History: Denies: Hx Coronary Artery Disease, Hx Hypertension, Hx Pulmonary Embolism Pulmonary Medical History: Reports: Hx Asthma, Hx Bronchitis, Hx COPD, Hx Pneumonia Denies: Hx Respiratory Failure, Hx Sleep Apnea, Hx Tuberculosis Endocrine Medical History: Denies: Hx Diabetes Mellitus Type 1, Hx Diabetes Mellitus Type 2 Renal/ Medical History: Denies: Hx Peritoneal Dialysis Malignancy Medical History: Denies Hx Lung Cancer Psychiatric Medical History: Reports: Hx Attention Deficit Hyperactivity Disorder Denies: Hx Anxiety, Hx Bipolar Disorder, Hx Depression, Hx Schizophrenia Past Surgical History: Reports: Hx Tonsillectomy. Denies: Hx Pacemaker - Immunizations Immunizations up to date: Yes Hx Diphtheria, Pertussis, Tetanus Vaccination: Yes Review of Systems - Review of Systems Notes: REVIEW OF SYSTEMS: CONSTITUTIONAL: -fevers, -chills EENT: -eye pain, -difficulty swallowing, -nasal congestion CARDIOVASCULAR:-chest pain, -syncope. RESPIRATORY: -cough, -SOB GASTROINTESTINAL: -abdominal pain, - nausea, -vomiting, -diarrhea GENITOURINARY: -dysuria, -hematuria MUSCULOSKELETAL: -back pain, -neck pain SKIN: -rash or skin lesions. HEMATOLOGIC: -easy bruising or bleeding. LYMPHATIC: -swollen, enlarged glands. NEUROLOGICAL: -altered mental status or loss of consciousness, -headache, - neurologic symptoms PSYCHIATRIC: -anxiety, -depression. ALL OTHER SYSTEMS REVIEWED AND NEGATIVE. Physical Exam - Vital signs Vitals: Temp Pulse Resp BP Pulse Ox 97.4 F 72 16 135/85 H 98 05/22/16 00:02 04/16/17 00:02 05/22/16 00:02 05/22/16 00:02 05/22/16 00:02 - Notes Notes: PHYSICAL EXAMINATION: GENERAL: Well-appearing, well-nourished and in no acute distress. HEAD: Atraumatic, normocephalic. EYES: Pupils equal round and reactive to light, extraocular movements intact, sclera anicteric, conjunctiva are normal. ENT: nares patent, oropharynx clear without exudates. Moist mucous membranes. NECK: Normal range of motion, supple without lymphadenopathy LUNGS: Breath sounds clear to auscultation bilaterally and equal. No wheezes rales or rhonchi. HEART: Regular rate and rhythm without murmurs ABDOMEN: Soft, nontender, normoactive bowel sounds. No guarding, no rebound. No masses appreciated. EXTREMITIES: Normal range of motion, no pitting or edema. No cyanosis. NEUROLOGICAL: Cranial nerves grossly intact. Normal speech, normal gait. Normal sensory, motor, and reflex exams. PSYCH: Normal mood, normal affect. SKIN: Warm, Dry, normal turgor, no rashes or lesions noted. Course - Re-evaluation Re-evalutation: No signs of anaphylaxis at this time. Will discharge patient with instructions to car pick up driver [id number] Benadryl. - Vital Signs Vital signs: Temp Pulse Resp BP Pulse Ox 97.4 F 72 16 135/85 H 98 05/22/16 00:02 05/22/16 00:02 05/22/16 00:02 05/22/16 00:02 05/22/16 00:02 Discharge - Discharge Clinical Impression: Seasonal allergies Qualifiers: Allergic rhinitis trigger: unspecified Qualified Code(s): J30.2 - Other seasonal allergic rhinitis Condition: Good Disposition: HOME, SELF-CARE Additional Instructions: You may buy [id number] Benadryl to help with your seasonal allergies.
== END 2016-05-22 03:23 | disposition home or self-care (01) ==
LOC: ER 23:59
DX: J30.2 Other seasonal allergic rhinitis (principal); L29.9 Pruritus, unspecified; F17.200 Nicotine dependence, unspecified, uncomplicated
CPT/HCPCS: 99282

== ENCOUNTER 2016-05-26 01:48 | Emergency (ER) | payer OTHER ==
[2016-05-26] MEDS ORDERED: LIDOCAINE 1% INJ-PF (10 MG/ML) 30 ML SDV INJ ONE (02:04)
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
[2016-05-26 06:05] VITALS: BP 115/58
== END 2016-05-26 04:44 | disposition home or self-care (01) ==
LOC: ER 01:48
PROC: 0HQ1XZZ Repair Face Skin, External Approach (ICD-10-PCS; principal; 2016-05-26)
DX: S02.31XA Fracture of orbital floor, right side, initial encounter for closed fracture (principal); S09.12XA Laceration of muscle and tendon of head, initial encounter; S01.111A Laceration without foreign body of right eyelid and periocular area, initial encounter; Y09 Assault by unspecified means; Y92.59 Other trade areas as the place of occurrence of the external cause; F17.200 Nicotine dependence, unspecified, uncomplicated; J44.9 Chronic obstructive pulmonary disease, unspecified; Z91.048 Other nonmedicinal substance allergy status
CPT/HCPCS: 70480; 99285

== ENCOUNTER 2016-05-26 15:34 | Emergency (ER) | payer OTHER ==
[2016-05-26 17:31] VITALS: BP 114/101
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
== END 2016-05-26 17:26 | disposition left against medical advice (07) ==
LOC: ER 15:34
DX: R09.81 Nasal congestion (principal); S02.31XA Fracture of orbital floor, right side, initial encounter for closed fracture; W50.0XXA Accidental hit or strike by another person, initial encounter; R51 Headache; J44.9 Chronic obstructive pulmonary disease, unspecified; Z53.20 Procedure and treatment not carried out because of patient's decision for unspecified reasons
CPT/HCPCS: 99281

== ENCOUNTER 2017-02-16 22:16 | Emergency (ER) | payer OTHER ==
[2017-02-16 22:22] VITALS: BP 134/69
[2017-02-16] MEDS ORDERED: KETOROLAC TROMETHAMINE 60 MG/2 ML SDV IM ONE (22:44)
--- NOTE | 2017-02-16 22:46 | ER Document Report ---
ED Medical Screen (RME) - General Chief Complaint: Headache Stated Complaint: HEADACHE Mode of Arrival: Ambulatory Information source: Patient Notes: Patient presents complaining of headache off and on today. Patient denies any fever, nausea or vomiting, or head injury. Patient with tangential speech and delusional ideas such as stating that he has a second brain on top of his head. Patient is currently homeless. Patient denies any suicidal or homicidal ideation hx: None I have greeted and performed a rapid initial assessment of this patient. A comprehensive ED assessment and evaluation of the patient, analysis of test results and completion of the medical decision making process will be conducted by additional ED providers. TRAVEL OUTSIDE OF THE [place] IN LAST 30 DAYS: No - Related Data Allergies/Adverse Reactions: poison veronica extract [Poison Veronica Extract] Allergy (Verified 02/16/17 22:17) poison oak extract [Poison [place] Extract] Allergy (Verified 02/16/17 22:17) Home Medications: Current Home Medications No Home Medications 02/16/17 [History] Past Medical History - Social History Frequency of alcohol use: None Drug Abuse: None Family history: None. denies: CAD, CVA, DM, Hyperlipidemia, Hypertension, Malignancy, Thyroid Disfunction - Past Medical History Cardiac Medical History: Denies: Hx Coronary Artery Disease, Hx Hypertension, Hx Pulmonary Embolism Pulmonary Medical History: Reports: Hx Asthma, Hx Bronchitis, Hx COPD, Hx Pneumonia Denies: Hx Respiratory Failure, Hx Sleep Apnea, Hx Tuberculosis Endocrine Medical History: Denies: Hx Diabetes Mellitus Type 1, Hx Diabetes Mellitus Type 2 Renal/ Medical History: Denies: Hx Peritoneal Dialysis Malignancy Medical History: Denies Hx Lung Cancer Psychiatric Medical History: Reports: Hx Attention Deficit Hyperactivity Disorder Denies: Hx Anxiety, Hx Bipolar Disorder, Hx Depression, Hx Schizophrenia Past Surgical History: Reports: Hx Tonsillectomy. Denies: Hx Pacemaker - Immunizations Immunizations up to date: Yes Hx Diphtheria, Pertussis, Tetanus Vaccination: Yes Physical Exam - Vital signs Vitals: Temp Pulse Resp BP Pulse Ox 98.7 F 89 18 134/69 H 99 02/16/17 22:19 02/16/17 22:19 02/16/17 22:19 02/16/17 22:19 02/16/17 22:19 - Neurological Paula Coma Scale Eye Opening: Spontaneous [place] Coma Scale Verbal: Oriented [place] Coma Scale Motor: Obeys Commands Paula Coma Scale Total: 15 - Psychological Associated symptoms: Tangential speech. No: Auditory hallucinations, Visual hallucinations Course - Vital Signs Vital signs: Temp Pulse Resp BP Pulse Ox 98.7 F 89 18 134/69 H 99 02/16/17 22:19 02/16/17 22:19 02/16/17 22:19 02/16/17 22:19 02/16/17 22:19
== END 2017-02-16 23:08 | disposition left against medical advice (07) ==
LOC: ER 22:16
DX: Z53.21 Procedure and treatment not carried out due to patient leaving prior to being seen by health care provider (principal); R51 Headache
CPT/HCPCS: 99283; 96372; J1885

== ENCOUNTER 2017-02-20 03:57 | Emergency (ER) | payer OTHER ==
[2017-02-20] MEDS ORDERED: DIPHENHYDRAMINE HCL 50 MG CAPSULE PO ONE (04:42)
[2017-02-20] MEDS ORDERED: PROCHLORPERAZINE MALEATE 10 MG TABLET PO ONE (04:42)
[2017-02-20] MEDS ORDERED: KETOROLAC TROMETHAMINE 10 MG TABLET PO ONE (04:42)
--- NOTE | 2017-02-20 05:48 | ER Document Report ---
HPI - HPI Pain Level: 3 Notes: Patient is a 31-year-old male with no significant past medical history presents the ED complaining of a headache times several days. Patient states that his headache is moderate in severity and he does have some light sensitivity. Patient states that he has headaches like this in the past. Patient still eating and drinking identical days. He is urinating normally and having normal bowel movements. Patient is homeless and is requesting food. Patient states that this is not the worst headache of his life. The headache did not start suddenly, but has been somewhat gradual. Pain is not localized to one specific area. Denies any fever, head injury, neck pain, changes in vision/speech/ mentation/hearing, URI, sore throat, chest pain, palpitations, syncope, cough, shortness of breath, wheeze, dyspnea, abdominal pain, nausea/vomiting/diarrhea, urinary retention, dysuria, hematuria, loss of control of bowel or bladder, numbness/tingling, saddle anesthesia, muscle paralysis/weakness, or rash. - ROS Notes: REVIEW OF SYSTEMS: CONSTITUTIONAL : Denies fever, chills, or sweats. Denies recent illness. EENT: Denies eye, ear, throat, or mouth pain or symptoms. Denies nasal or sinus congestion or discharge. Denies throat, tongue, or mouth swelling or difficulty swallowing. CARDIOVASCULAR: Denies chest pain. Denies palpitations or racing or irregular heart beat. Denies ankle edema. RESPIRATORY: Denies cough, cold, or chest congestion. Denies shortness of breath, difficulty breathing, or wheezing. GASTROINTESTINAL: Denies abdominal pain or distention. Denies nausea, vomiting , or diarrhea. Denies blood in vomitus, stools, or per rectum. Denies black, tarry stools. Denies constipation. GENITOURINARY: Denies difficulty urinating, painful urination, burning, frequency, blood in urine, or discharge. MUSCULOSKELETAL: Denies back or neck pain or stiffness. Denies joint pain or swelling. SKIN: Denies rash, lesions or sores. NEUROLOGICAL: see hpi. Denies confusion or altered mental status. Denies passing out or loss of consciousness. Denies dizziness or lightheadedness. Denies weakness or paralysis or loss of use of either side. Denies problems with gait or speech. Denies sensory loss, numbness, or tingling. Denies seizures. PSYCHIATRIC: Denies anxiety or stress. Denies depression, suicidal ideation, or homicidal ideation. ALL OTHER SYSTEMS REVIEWED AND NEGATIVE. Dictation was performed using [employer] voice recognition software - CONSTITUTIONAL Constitutional: DENIES: Chills - NEURO Neurology: REPORTS: Headache Past Medical History - Social History Smoking Status: Current Every Day Smoker Chew tobacco use (# tins/day): No Frequency of alcohol use: None Drug Abuse: None Family History: Reviewed & Not Pertinent Patient has suicidal ideation: No Patient has homicidal ideation: No - Past Medical History Cardiac Medical History: Denies: Hx Coronary Artery Disease, Hx Hypertension, Hx Pulmonary Embolism Pulmonary Medical History: Reports: Hx Asthma, Hx Bronchitis, Hx COPD, Hx Pneumonia Denies: Hx Respiratory Failure, Hx Sleep Apnea, Hx Tuberculosis Endocrine Medical History: Denies: Hx Diabetes Mellitus Type 1, Hx Diabetes Mellitus Type 2 Renal/ Medical History: Denies: Hx Peritoneal Dialysis Malignancy Medical History: Denies Hx Lung Cancer Psychiatric Medical History: Reports: Hx Attention Deficit Hyperactivity Disorder Denies: Hx Anxiety, Hx Bipolar Disorder, Hx Depression, Hx Schizophrenia Past Surgical History: Reports: Hx Tonsillectomy. Denies: Hx Pacemaker - Immunizations Immunizations up to date: Yes Hx Diphtheria, Pertussis, Tetanus Vaccination: Yes Vertical Provider Document - CONSTITUTIONAL Agree With Documented VS: Yes Notes: PHYSICAL EXAMINATION: GENERAL: Well-appearing, well-nourished and in no acute distress. A&Ox4. Answers questions appropriately. Sitting in the room with the lights on and in no distress. Moves around comfortably. HEAD: Atraumatic, normocephalic. Non-tender. No dubois sign EYES: Pupils equal round and reactive to light, extraocular movements intact, sclera anicteric, conjunctiva are normal. No raccoon eyes/entrapment. No nystagmus. ENT: EAC clear b/l. TM's intact b/l without erythema, fluid, or perforation. Nares patent and without discharge. oropharynx clear without exudates. No tonsilar hypertrophy or erythema. Moist mucous membranes. No sinus tenderness. NECK: Normal range of motion, supple without lymphadenopathy. No rigidity. No midline tenderness. Spurling negative. NEXUS negative. Chest: No flail chest. equal rise/fall. Non-tender LUNGS: Breath sounds clear to auscultation bilaterally and equal. No wheezes rales or rhonchi. HEART: Regular rate and rhythm without murmurs, rubs, gallops. ABDOMEN: Soft, nontender, nondistended abdomen. No guarding, no rebound. No masses appreciated. Normal bowel sounds present. No CVA tenderness bilaterally. Musculoskeletal: Ext b/l: FROM to passive/active. Strength 5+/5. No deficits noted. No bony tenderness of extremities. Back: FROM to passive/active. Strength 5+/5. No vertebral point tenderness, stepoffs, or deformities. No other bony tenderness or ecchymosis. SLR negative b/l. Extremities: No cyanosis, clubbing, or edema b/l. Peripheral pulses 2+. Capillary refill less than 2 seconds. NEUROLOGICAL: NIH 0. GCS 15. MMSE intact. Cranial nerves grossly intact. Normal speech, normal gait. Normal sensory, motor exams. Reflexes 2+ b/l. LESLI' s negative. Pronator drift negative. Heel/byrd, finger/nose wnl. Walking on heels/toes and heel to toe wnl. PSYCH: Normal mood, normal affect. SKIN: Warm, Dry, normal turgor, no rashes or lesions noted. - INFECTION CONTROL TRAVEL OUTSIDE OF THE [place] IN LAST 30 DAYS: No - RESPIRATORY O2 Sat by Pulse Oximetry: 97 Course - Re-evaluation Re-evalutation: 02/20/17 06:30 Patient is an afebrile, well-hydrated, 31-year-old male who presents to the ED with a headache, suspect migraine versus tension. Vitals are stable. PE is otherwise unremarkable for any focal neurological deficits. No labs or imaging warranted at this time based on H&P. Patient was given p.o. Benadryl, Toradol, and Compazine. Patient's headache did improve. Patient was given a meal as well. Low suspicion for any acute glaucoma, temporal arteritis, meningitis, intracranial hemorrhage, ischemic stroke, or fracture at this time. Patient is aware that his condition can change from initial presentation and that he needs to monitor symptoms closely for any acute changes. Recommend conservative measures for symptoms. Recheck with your PCM in 3-5 days. Return to the ED with any worsening/concerning symptoms otherwise as reviewed in discharge. Patient is in agreement. - Vital Signs Vital signs: Temp Pulse Resp BP Pulse Ox 98.5 F 102 H 17 148/78 H 97 01/15/18 04:09 02/20/17 04:09 02/20/17 04:09 02/20/17 04:09 02/20/17 04:09 Discharge - Discharge Clinical Impression: Headache Qualifiers: Headache type: unspecified Headache chronicity pattern: acute headache Intractability: not intractable Qualified Code(s): R51 - Headache Condition: Stable Disposition: HOME, SELF-CARE Instructions: Headache ([facility]) Additional Instructions: Rest, Ice Tylenol/ibuprofen as needed Light stretches daily Strength exercises as able Moist heat and massage may help F/u with your PCP in 3-5 days for a recheck Consider consult(s) with Orthopedics/physical therapy for ongoing/worsening symptoms Return to the ED with any worsening symptoms and/or development of fever, headache, changes in behavior/mentation/speech/vision, chest pain, palpitations , syncope, shortness of breath, trouble breathing, abdominal pain, n/v/d, blood in stool/urine, loss of control of bowel/bladder, urinary retention, muscle weakness/paralysis, saddle anesthesia, numbness/tingling, or other worsening symptoms that are concerning to you. Forms: Elevated Blood Pressure, Smoking Cessation Education Referrals: [facility] [Provider Group] - Follow up as needed [facility] [Provider Group] - Follow up as needed
[2017-02-20 07:29] VITALS: BP 106/57
== END 2017-02-20 07:28 | disposition home or self-care (01) ==
LOC: ER 03:57
DX: R51 Headache (principal); H53.149 Visual discomfort, unspecified; F17.200 Nicotine dependence, unspecified, uncomplicated; J44.9 Chronic obstructive pulmonary disease, unspecified
CPT/HCPCS: 99283

== ENCOUNTER 2017-02-20 08:45 | Emergency (ER) | payer OTHER ==
[2017-02-20] MEDS ORDERED: ACETAMINOPHEN 325 MG TABLET PO ONE (09:46)
--- NOTE | 2017-02-20 09:47 | ER Document Report ---
ED Headache - General Chief Complaint: Headache Stated Complaint: HEADACHE Time Seen by Provider: 02/20/17 09:36 Mode of Arrival: Ambulatory Information source: Patient Notes: 31-year-old male presenting ED for complaint of headache and shoulder pain. He had been seen last night was discharged was waiting in the lobby steady was homeless and did not have a place to go so he was sleeping in the lobby he was instructed to leave that he cannot stay in the lobby so he stated then he would get checked and again and get evaluated again so he could get some sleep. When asked did he have any change in his symptoms, he stated he never got his Toradol that he was supposed to get earlier and he still had a headache. TRAVEL OUTSIDE OF THE [place] IN LAST 30 DAYS: No - HPI Patient complains to provider of: Headache, Other - Left shoulder pain Onset: Other - Yesterday Onset was: Cannot pinpoint Timing: Still present Quality of pain: Achy Severity: Severe Pain Level: 5 Associated symptoms: Other - Chronic headache, left shoulder pain Exacerbated by: Other - Patient states he just needs to go to sleep Similar symptoms previously: Yes Recently seen / treated by doctor: Yes - Related Data Allergies/Adverse Reactions: poison veronica extract [Poison Veronica Extract] Allergy (Verified 02/16/17 22:17) poison oak extract [Poison [place] Extract] Allergy (Verified 02/16/17 22:17) Past Medical History - General Information source: Patient - Social History Smoking Status: Current Every Day Smoker Cigarette use (# per day): Yes Chew tobacco use (# tins/day): No Smoking Education Provided: Yes - 4 minutes Frequency of alcohol use: None Drug Abuse: None Family History: Reviewed & Not Pertinent - Past Medical History Cardiac Medical History: Denies: Hx Coronary Artery Disease, Hx Hypertension, Hx Pulmonary Embolism Pulmonary Medical History: Reports: Hx Asthma, Hx Bronchitis, Hx COPD, Hx Pneumonia Denies: Hx Respiratory Failure, Hx Sleep Apnea, Hx Tuberculosis Endocrine Medical History: Denies: Hx Diabetes Mellitus Type 1, Hx Diabetes Mellitus Type 2 Renal/ Medical History: Denies: Hx Peritoneal Dialysis Malignancy Medical History: Denies Hx Lung Cancer Psychiatric Medical History: Reports: Hx Attention Deficit Hyperactivity Disorder Denies: Hx Anxiety, Hx Bipolar Disorder, Hx Depression, Hx Schizophrenia Past Surgical History: Reports: Hx Tonsillectomy. Denies: Hx Pacemaker - Immunizations Immunizations up to date: Yes Hx Diphtheria, Pertussis, Tetanus Vaccination: Yes Review of Systems - Review of Systems Constitutional: No symptoms reported EENT: No symptoms reported Cardiovascular: No symptoms reported Respiratory: No symptoms reported Gastrointestinal: No symptoms reported Genitourinary: No symptoms reported Male Genitourinary: No symptoms reported Musculoskeletal: Other - shoulder pain Skin: No symptoms reported Hematologic/Lymphatic: No symptoms reported Neurological/Psychological: Headaches -: Yes All other systems reviewed and negative Physical Exam - Vital signs Vitals: Temp Pulse Resp BP Pulse Ox 98.5 F 65 16 116/69 98 02/20/17 08:49 02/20/17 08:49 02/20/17 08:49 02/20/17 08:49 02/20/17 08:49 Interpretation: Normal - General General appearance: Appears well, Alert - HEENT Head: Normocephalic, Atraumatic Eyes: Normal Pupils: PERRL - Respiratory Respiratory status: No respiratory distress Chest status: Nontender Breath sounds: Normal Chest palpation: Normal - Cardiovascular Rhythm: Regular Heart sounds: Normal auscultation Murmur: No - Abdominal Inspection: Normal Distension: No distension Bowel sounds: Normal Tenderness: Nontender Organomegaly: No organomegaly - Back Back: Normal, Nontender - Extremities General upper extremity: Normal inspection, Normal color, Normal ROM, Normal temperature General lower extremity: Normal inspection, Nontender, Normal color, Normal ROM , Normal temperature, Normal weight bearing. No: Kush's sign Shoulder: Tender. No: Abrasion, Deformity, Dislocation, Ecchymosis, Instability , Laceration, Limited ROM Arm: Normal, Nontender Elbow: Normal, Nontender Forearm: Normal, Nontender Wrist: Normal, Nontender Hand: Normal, Nontender - Neurological Neuro grossly intact: Yes Cognition: Normal Orientation: AAOx4 [place] Coma Scale Eye Opening: Spontaneous [place] Coma Scale Verbal: Oriented [place] Coma Scale Motor: Obeys Commands [place] Coma Scale Total: 15 Speech: Normal Motor strength normal: LUE, RUE, LLE, RLE Sensory: Normal - Psychological Associated symptoms: Normal affect, Normal mood - Skin Skin Temperature: Warm Skin Moisture: Dry Skin Color: Normal Course - Re-evaluation Re-evalutation: 02/20/17 16:09 Patient was treated earlier with Toradol and Tylenol for his chronic headache and chronic shoulder pain. He was then discharged with instructions to follow- up with his orthopedic. Patient states all he really wants to do is sleep he does does not need a bunch of stuff he wants to sleep and he wants might leave them alone leading sleep. I explained to him that the emergency room is not a motel in it is not a place to come in sleep. - Vital Signs Vital signs: Temp Pulse Resp BP Pulse Ox 98.3 F 53 L 16 103/60 98 02/20/17 10:13 02/20/17 10:13 02/20/17 08:49 02/20/17 10:13 02/20/17 10:13 Discharge - Discharge Clinical Impression: states he needs to sleep Headache Qualifiers: Headache type: unspecified Headache chronicity pattern: unspecified pattern Intractability: not intractable Qualified Code(s): R51 - Headache Chronic shoulder pain Qualifiers: Laterality: left Qualified Code(s): M25.512 - Pain in left shoulder; G89.29 - Other chronic pain; G89.29 - Other chronic pain Condition: Stable Disposition: HOME, SELF-CARE Instructions: Family Physicians / Practices Additional Instructions: HEADACHE: The physician does not feel that the headache you are experiencing has a serious underlying cause. Most headaches are due to emotional stress, with resultant muscle tension (tension headache). Occasionally, headaches are secondary to changes in the blood vessels of the scalp (vascular headache and migraine headache). Sometimes, a headache is the first symptom of another developing illness, such as a viral infection. You have no evidence of stroke, bleeding, meningitis, or other serious cause of your headache. The treatment of headaches varies with the severity and cause of the pain. Not all headaches need pain shots. In fact, there is evidence that using narcotics for headaches may make them worse in the long run. The physician will determine the therapy that's in your best interest. If you develop a fever, if the headache is different from any you've previously experienced, or if the headache progressively worsens, then call your physician at once or go to the emergency room. USE OF DIPHENHYDRAMINE: Diphenhydramine (Benadryl) is an antihistamine and has been recommended to help treat your headache and to prevent side effects of other medications used to treat headaches. The medication can be repeated four times daily. Age Elixir (12.5 mg/tsp) 25 mg pill adult 1-2 tabs Antihistamines may cause drowsiness, especially with the first dose. Do not operate machinery or drive while under the effects of the medication. Do not combine the medication with alcohol, or with any other medication without talking to your doctor. COMPAZINE FOR HEADACHE: You have received therapy for headaches, using Compazine. This treatment is dramatically successful in relieving the headache in about 50 percent of cases. When it works, it provides a rapid method of eliminating the headache without resorting to narcotics (and the problems associated with them). Most patients still feel fully alert after the Compazine, but others may be slightly drowsy. It's best not to drive or work with machinery for six to eight hours. Do not take alcohol or other medication unless you discuss it with the doctor. If you develop tightness and spasms in your muscles, especially the neck and tongue, you should return. This is a side effect which can be treated. TORADOL INJECTION: You have been given an injection of ketorolac tromethamine (Toradol). This is an excellent, safe drug for pain control. It also has potent antiinflammatory action. You should have significant pain relief within about one hour. Toradol is not addicting and is non-sedating. It does not interfere with driving or work. Call or return if you develop itching, hives, shortness of breath, or rash. FOLLOW-UP CARE: If you have been referred to a physician for follow-up care, call the physician s office for an appointment as you were instructed or within the next two days. If you experience worsening or a significant change in your symptoms, notify the physician immediately or return to the Emergency Department at any time for re-evaluation. Prescriptions: Prochlorperazine Maleate [Compazine 10 mg Tablet] 10 mg PO ASDIR PRN #10 tablet PRN Reason: Forms: Smoking Cessation Education Referrals: [facility] [Provider Group] - Follow up as needed
[2017-02-20] MEDS ORDERED: KETOROLAC TROMETHAMINE 60 MG/2 ML SDV IM ONE (09:51)
[2017-02-20 10:24] VITALS: BP 103/60
== END 2017-02-20 10:17 | disposition home or self-care (01) ==
LOC: ER 08:45
DX: G89.29 Other chronic pain (principal); R51 Headache; M25.512 Pain in left shoulder; J44.9 Chronic obstructive pulmonary disease, unspecified; F17.210 Nicotine dependence, cigarettes, uncomplicated; Z71.6 Tobacco abuse counseling; Z59.0 Homelessness; Z91.048 Other nonmedicinal substance allergy status
CPT/HCPCS: 99406; 99283; 96372; J1885

== ENCOUNTER 2017-02-20 22:20 | Emergency (ER) | payer OTHER ==
--- NOTE | 2017-02-21 00:42 | ER Document Report ---
ED General - General Chief Complaint: Other Stated Complaint: BODY ACHE, HEADACHE, SHOULDER PAIN Mode of Arrival: Ambulatory Information source: Patient TRAVEL OUTSIDE OF THE [place] IN LAST 30 DAYS: No - HPI Notes: 31-year-old male presents today for the third time for complaints of the headache and left shoulder pain. Patient states that his headache has been going on for "months and months" denies any chest pain, shortness of breath, nausea, vomiting, blurred vision, double vision, loss of vision. Patient denies that this is the worst headache of his life. Patient states the headache has been gradually occurring. Patient cannot localize headache to one area. Denies any fevers or chills. Denies any cough, wheezing, abdominal pain , urinary retention, dysuria, hematuria, numbness or tingling down bilateral lower and upper extremities, saddle anesthesia, muscle paralysis, weakness, rash. Patient denies any photophobia or phonophobia. - Related Data Allergies/Adverse Reactions: poison veronica extract [Poison Veronica Extract] Allergy (Verified 02/20/17 22:33) poison oak extract [Poison [place] Extract] Allergy (Verified 02/20/17 22:33) Past Medical History - General Information source: Patient - Social History Smoking Status: Unknown if Ever Smoked Family History: Reviewed & Not Pertinent - Past Medical History Cardiac Medical History: Denies: Hx Coronary Artery Disease, Hx Hypertension, Hx Pulmonary Embolism Pulmonary Medical History: Reports: Hx Asthma, Hx Bronchitis, Hx COPD, Hx Pneumonia Denies: Hx Respiratory Failure, Hx Sleep Apnea, Hx Tuberculosis Endocrine Medical History: Denies: Hx Diabetes Mellitus Type 1, Hx Diabetes Mellitus Type 2 Renal/ Medical History: Denies: Hx Peritoneal Dialysis Malignancy Medical History: Denies Hx Lung Cancer Psychiatric Medical History: Reports: Hx Attention Deficit Hyperactivity Disorder Denies: Hx Anxiety, Hx Bipolar Disorder, Hx Depression, Hx Schizophrenia Past Surgical History: Reports: Hx Tonsillectomy. Denies: Hx Pacemaker - Immunizations Immunizations up to date: Yes Hx Diphtheria, Pertussis, Tetanus Vaccination: Yes Review of Systems - Review of Systems Constitutional: No symptoms reported EENT: No symptoms reported Cardiovascular: No symptoms reported Respiratory: No symptoms reported Gastrointestinal: No symptoms reported Genitourinary: No symptoms reported Male Genitourinary: No symptoms reported Musculoskeletal: See HPI Skin: No symptoms reported Hematologic/Lymphatic: No symptoms reported Neurological/Psychological: Headaches -: Yes All other systems reviewed and negative Physical Exam - Vital signs Vitals: Temp Pulse Resp BP Pulse Ox 98.3 F 73 18 119/107 H 99 02/20/17 22:33 02/20/17 22:33 02/20/17 22:33 02/20/17 22:33 02/20/17 22:33 - General General appearance: Appears well, Anxious In distress: None - HEENT Head: Normocephalic Eyes: Normal Conjunctiva: Normal Extraocular movements intact: Yes Eyelashes: Normal Pupils: PERRL - Respiratory Respiratory status: No respiratory distress Chest status: Nontender Breath sounds: Normal Chest palpation: Normal - Cardiovascular Rhythm: Regular Heart sounds: Normal auscultation Normal capillary refill: Yes - Extremities General upper extremity: Normal inspection General lower extremity: Normal inspection Shoulder: Normal, Other - Full sensorimotor function bilateral shoulders. Strength 5 out of 5. No bony tenderness of extremities. 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 Patient's clinical exam is unremarkable for any focal neurological deficits. No labs are warranted at this time due to H&P and exam. PT given Toradol with some relief. Follow-up with primary care within 3 days. R After performing a Medical Screening Examination, I estimate there is LOW risk for ACUTE GLAUCOMA, TEMPORAL ARTERITIS, MENINGITIS, INCRANIAL HEMORRHAGE, or ISCHEMIC STROKE thus I consider the discharge disposition reasonable. I have reevaluated this patient multiple times and no significant life threatening changes are noted. The patient and I have discussed the diagnosis and risks, and we agree with discharging home with close follow-up with the understanding that symptoms and presentations can change. We also discussed returning to the Emergency Department immediately if new or worsening symptoms occur. We have discussed the symptoms which are most concerning (e.g., changing or worsening symptoms, new numbness or weakness, vomiting, fever) that necessitate immediate return. 02/21/17 00:48 - Vital Signs Vital signs: Temp Pulse Resp BP Pulse Ox 98.3 F 73 18 119/107 H 99 02/20/17 22:33 02/20/17 22:33 02/20/17 22:33 02/20/17 22:33 02/20/17 22:33 Discharge - Discharge Clinical Impression: Chronic headaches Qualifiers: Headache type: unspecified Intractability: not intractable Qualified Code(s): R51 - Headache Condition: Good Instructions: Headache ([facility]) Additional Instructions: HEADACHE: The physician does not feel that the headache you are experiencing has a serious underlying cause. Most headaches are due to emotional stress, with resultant muscle tension (tension headache). Occasionally, headaches are secondary to changes in the blood vessels of the scalp (vascular headache and migraine headache). Sometimes, a headache is the first symptom of another developing illness, such as a viral infection. You have no evidence of stroke, bleeding, meningitis, or other serious cause of your headache. The treatment of headaches varies with the severity and cause of the pain. Not all headaches need pain shots. In fact, there is evidence that using narcotics for headaches may make them worse in the long run. The physician will determine the therapy that's in your best interest. If you develop a fever, if the headache is different from any you've previously experienced, or if the headache progressively worsens, then call your physician at once or go to the emergency room. USE OF DIPHENHYDRAMINE: Diphenhydramine (Benadryl) is an antihistamine and has been recommended to help treat your headache and to prevent side effects of other medications used to treat headaches. The medication can be repeated four times daily. Age Elixir (12.5 mg/tsp) 25 mg pill adult 1-2 tabs Antihistamines may cause drowsiness, especially with the first dose. Do not operate machinery or drive while under the effects of the medication. Do not combine the medication with alcohol, or with any other medication without talking to your doctor. ANTINAUSEA MEDICATION: You have been given a medication to suppress nausea and vomiting. This type of medication can be given as a shot, pill, or suppository. It will usually last for many hours. Pills and shots usually last six to eight hours, suppositories last about 12 hours. For the typical illness, only one or two doses of the medication may be necessary. Mild lightheadedness may occur. This type of medicine can cause drowsiness. Do not drive or operate dangerous machinery while under its influence. Do not mix with alcohol. See your doctor at once if you have muscle spasms or tightness, or uncontrollable motions (particularly of the neck, mouth, or jaw). Persistent vomiting or severe lightheadedness should also be evaluated by the physician. TORADOL INJECTION: You have been given an injection of ketorolac tromethamine (Toradol). This is an excellent, safe drug for pain control. It also has potent antiinflammatory action. You should have significant pain relief within about one hour. Toradol is not addicting and is non-sedating. It does not interfere with driving or work. Call or return if you develop itching, hives, shortness of breath, or rash. FOLLOW-UP CARE: If you have been referred to a physician for follow-up care, call the physician s office for an appointment as you were instructed or within the next two days. If you experience worsening or a significant change in your symptoms, notify the physician immediately or return to the Emergency Department at any time for re-evaluation. Return immediately for any new or worsening symptoms. Follow up with primary care provider, call tomorrow to make followup appointment. Referrals: CRISPIN COREY MD [COMMUNITY BASED STAFF] - Follow up as needed
[2017-02-21] MEDS ORDERED: KETOROLAC TROMETHAMINE 10 MG TABLET PO ONE (00:48)
[2017-02-21 00:58] VITALS: BP 125/81
[2017-02-21] MEDS ORDERED: KETOROLAC TROMETHAMINE 10 MG TABLET ONE (01:46)
== END 2017-02-21 01:58 | disposition home or self-care (01) ==
LOC: ER 22:20
DX: R51 Headache (principal); M25.512 Pain in left shoulder; J44.9 Chronic obstructive pulmonary disease, unspecified; Z91.048 Other nonmedicinal substance allergy status
CPT/HCPCS: 99283; J3490

== ENCOUNTER 2017-02-21 03:27 | Emergency (ER) | payer OTHER ==
--- NOTE | 2017-02-21 07:14 | ER Document Report ---
HPI - HPI Patient complains to provider of: left shoulder pain and headache Onset: Other - chronic shouler pain, headache for several days Quality of pain: Throbbing Pain Level: 5 Context: 31 yo male c/o left shoulder pain for a long time and headache for several days. Vague about symptoms especially about the location, duration of the headache. Does not give answers to direct questions about the symptoms. No fever , vomiting, dizziness, chest or abd. pain. Relates shoulder to "new cartiledge" that grows in arm. See 3 times in ER yesterday. Associated Symptoms: None Exacerbated by: Movement - of the shoulder Relieved by: Denies Similar symptoms previously: Yes Recently seen / treated by doctor: Yes - ROS ROS below otherwise negative: Yes Systems Reviewed and Negative: Yes All other systems reviewed and negative Past Medical History - General Information source: Patient - Social History Smoking Status: Current Every Day Smoker Frequency of alcohol use: None Drug Abuse: None Occupation: none Lives with: Homeless Family History: Reviewed & Not Pertinent Pulmonary Medical History: Reports: Hx Asthma, Hx Bronchitis, Hx COPD, Hx Pneumonia Renal/ Medical History: Denies: Hx Peritoneal Dialysis Psychiatric Medical History: Reports: Hx Attention Deficit Hyperactivity Disorder Past Surgical History: Reports: Hx Tonsillectomy - Immunizations Immunizations up to date: Yes Hx Diphtheria, Pertussis, Tetanus Vaccination: Yes Vertical Provider Document - CONSTITUTIONAL Agree With Documented VS: Yes Exam Limitations: No Limitations General Appearance: No Apparent Distress - INFECTION CONTROL TRAVEL OUTSIDE OF THE [place] IN LAST 30 DAYS: No - HEENT HEENT: Normal ENT Exam - NECK Neck: Supple. negative: Lymphadenopathy-Left, Lymphadenopathy-Right - RESPIRATORY Respiratory: Breath Sounds Normal, No Respiratory Distress O2 Sat by Pulse Oximetry: 98 - CARDIOVASCULAR Cardiovascular: Regular Rate, Regular Rhythm - GI/ABDOMEN Gastrointestinal: Abdomen Soft, Abdomen Non-Tender - BACK Back: Normal Inspection - MUSCULOSKELETAL/EXTREMETIES Musculoskeletal/Extremeties: MAEW, FROM, Non-Tender - shoulder - NEURO Level of Consciousness: Awake, Alert, Appropriate Motor/Sensory: No Motor Deficit, No Sensory Deficit - DERM Integumentary: Warm, Dry, No Rash Course - Re-evaluation Re-evalutation: 02/21/17 07:33 The patient will not maintain eye contact when answering questions. He does not answer my direct questions he states he does not have any psychiatric history, he states he is Surfing or homeless he grew up in [place] his parents know that he is homeless. He states that he does want to talk to Anthony who gets her at 9:00 I told him that I would treat him with Tylenol for the headache. He then states that he will go to the homeless nursing home today. His main objective after I introduced myself was stating that he needed something stronger for the headache and chronic left shoulder pain. The way he describes the shoulder pain despite having full range of motion is that "extra cartilage just all of a sudden appeared in his shoulder", he then states that his headache which he cannot give me any specifics about his level 10/5 and in the next breath says that it is not that bad that it is intermittent, and that he has had headaches for a long time. Neurological exam is normal and when I asked him what day it was he looked at his watch to tell me the date. I saw him in April 2016 and his presentation is the same. His first visit to the emergency room was in 2010, and it appears that his visits are grouped together in repetitive visits during a few days. 02/21/17 07:49 I spoke with the pt again about his psychiatric history (after reviewing his records) and he needs to tell medical providers all his medical hx when asked, and he stated "that's my business and I don't need to tell you that." I told him that it is the the provider's business to know the full history to best take care of him. He stated he comes to the emergency goom because he does not have a doctor to go see. - Vital Signs Vital signs: Temp Pulse Resp BP Pulse Ox 98.3 F 63 16 142/74 H 98 02/21/17 03:58 02/21/17 03:58 02/21/17 03:58 02/21/17 03:58 02/21/17 03:58 Discharge - Discharge Clinical Impression: Chronic headache Qualifiers: Headache type: unspecified Intractability: not intractable Qualified Code(s): R51 - Headache Chronic shoulder pain Qualifiers: Laterality: unspecified laterality Qualified Code(s): M25.519 - Pain in unspecified shoulder Condition: Good Disposition: HOME, SELF-CARE Instructions: Acetaminophen, Arthralgia ([facility]), Headache ([facility]), Use of Over-The- Counter Ibuprofen ([facility]) Additional Instructions: see neurologist for headaches to er if worsening of the symptoms Referrals: JEANNINE NASH MD [EMERITUS] - Follow up as needed LEORA JAIN MD [ACTIVE STAFF] - Follow up as needed
[2017-02-21] MEDS ORDERED: ACETAMINOPHEN 325 MG TABLET PO ONE (07:33)
[2017-02-21] MEDS ORDERED: IBUPROFEN 600 MG TABLET PO ONE (07:33)
[2017-02-21 07:53] VITALS: BP 138/70
== END 2017-02-21 07:54 | disposition home or self-care (01) ==
LOC: ER 03:27
DX: G89.29 Other chronic pain (principal); M25.512 Pain in left shoulder; R51 Headache; F17.200 Nicotine dependence, unspecified, uncomplicated; J44.9 Chronic obstructive pulmonary disease, unspecified; Z59.0 Homelessness
CPT/HCPCS: 99283

== ENCOUNTER 2017-02-26 00:05 | Emergency (ER) | payer OTHER ==
[2017-02-26] MEDS ORDERED: IBUPROFEN 600 MG TABLET PO ONE (01:13)
--- NOTE | 2017-02-26 01:15 | ER Document Report ---
ED General Pain - General Chief Complaint: Pain All Over Stated Complaint: BODY ACHE Time Seen by Provider: 02/26/17 00:36 Mode of Arrival: Ambulatory Information source: Patient TRAVEL OUTSIDE OF THE [place] IN LAST 30 DAYS: No - HPI Onset: Other - chronic Onset/Duration: Intermittent Notes: Patient arrives with multiple complaints. Today is complaining of some left shoulder pain which is chronic. He denies any injuries or falls. He states that he has extra cartilage growing in the shoulder which is causing him some pain. He denies any fever redness. He denies any numbness, tingling, weakness. He also complains of some mild generalized body aches. And he is complaining of some irritated areas to the bottoms of his feet which she is concerned are infected. Patient is homeless. He has been seen multiple times recently for the same exact complaints. Nothing has significantly changed. Patient denies any fevers, nausea, vomiting, diarrhea. He has no other specific complaints at this time. - Related Data Allergies/Adverse Reactions: poison veronica extract [Poison Veronica Extract] Allergy (Verified 02/21/17 07:43) poison oak extract [Poison [place] Extract] Allergy (Verified 02/21/17 07:43) Past Medical History - Social History Smoking Status: Current Some Day Smoker Chew tobacco use (# tins/day): No Frequency of alcohol use: None Drug Abuse: None Family History: Reviewed & Not Pertinent Patient has suicidal ideation: No Patient has homicidal ideation: No - Past Medical History Cardiac Medical History: Denies: Hx Coronary Artery Disease, Hx Hypertension, Hx Pulmonary Embolism Pulmonary Medical History: Reports: Hx Asthma, Hx Bronchitis, Hx COPD, Hx Pneumonia Denies: Hx Respiratory Failure, Hx Sleep Apnea, Hx Tuberculosis Endocrine Medical History: Denies: Hx Diabetes Mellitus Type 1, Hx Diabetes Mellitus Type 2 Renal/ Medical History: Denies: Hx Peritoneal Dialysis Malignancy Medical History: Denies Hx Lung Cancer Psychiatric Medical History: Reports: Hx Attention Deficit Hyperactivity Disorder Denies: Hx Anxiety, Hx Bipolar Disorder, Hx Depression, Hx Schizophrenia Past Surgical History: Reports: Hx Tonsillectomy. Denies: Hx Pacemaker - Immunizations Immunizations up to date: Yes Hx Diphtheria, Pertussis, Tetanus Vaccination: Yes Review of Systems - Review of Systems -: Yes All other systems reviewed and negative Physical Exam - Notes Notes: GENERAL: alert, cooperative, nontoxic, no distress. HEAD: normocephalic, atraumatic EYES: conjunctiva pink without discharge, no external redness or swelling. EARS: no external swelling, no external redness NOSE: atraumatic, no external swelling MOUTH/THROAT: mucous membranes moist and pink NECK: soft, supple, full range of motion, no meningismus. CHEST: no distress, lungs clear and equal throughout. No wheezing, rales, rhonchi. CARDIAC: regular rate and rhythm, no murmur, normal capillary refill, normal pulses. BACK: full range of motion, no CVA tenderness. EXTREMITIES: full range of motion of all extremities. No redness, no swelling. NEURO: alert and oriented 3, no focal deficits, full range of motion of all extremities. PYSCH: appropriate mood, affect. Patient is cooperative. SKIN: pink, warm, dry, no rash. Irritation noted to the arches of both feet with some minimal surrounding redness. This appear to be more likely friction irritation than infection. There is no purulent drainage noted. Course - Re-evaluation Re-evalutation: 02/26/17 01:11 Patient is nontoxic appearing with stable vitals. The patient arrives with chronic left shoulder pain. No injuries. He has a normal exam. No signs of infection. Also complains of some generalized body aches. And is also complaining of some irritation to both of his feet. There are some areas of irritation noted likely from walking in the same socks for multiple days. No obvious infections noted at this time. I will write the patient a prescription for antibiotic cream that he can place on this. I instructed he needs to clean his feet daily and be sure to wear fresh socks each day. Patient will be given referral to the [facility]. He is requesting a dose of some ibuprofen or aspirin for his shoulder pain here in emergency department states he does find take some [id number] medication when he gets out of here. The patient's emergency department workup and current diagnosis were explained to the patient and or family. Follow-up instructions were provided. Medications if prescribed were discussed. Instructions for when to return to the emergency department including specific worrisome symptoms were discussed with the patient and/or family. Discharge - Discharge Clinical Impression: Chronic left shoulder pain Friction blisters of sole of left foot Qualifiers: Encounter type: initial encounter Qualified Code(s): S90.822A - Blister ( nonthermal), left foot, initial encounter Condition: Stable Disposition: HOME, SELF-CARE Instructions: Chronic Pain Control ([facility]) Additional Instructions: Cleaning her feet once a day. Be sure to wear fresh socks daily. Apply antibiotic ointment to sore areas. Follow-up for increasing pain, fever, redness, drainage, any further concerns. Forms: Smoking Cessation Education Referrals: [facility] [Provider Group] - Follow up as needed
== END 2017-02-26 01:35 | disposition home or self-care (01) ==
LOC: ER 00:05
DX: G89.29 Other chronic pain (principal); M25.512 Pain in left shoulder; S90.822A Blister (nonthermal), left foot, initial encounter; X58.XXXA Exposure to other specified factors, initial encounter; J44.9 Chronic obstructive pulmonary disease, unspecified; Z59.0 Homelessness; Z91.048 Other nonmedicinal substance allergy status
CPT/HCPCS: 99283

== ENCOUNTER 2017-05-14 23:55 | Emergency (ER) | payer OTHER ==
[2017-05-15] MEDS ORDERED: ONDANSETRON ODT 4 MG TAB (6 TAB/ER DISP) PO PRN (01:51)
[2017-05-15] MEDS ORDERED: FAMOTIDINE 20 MG TABLET PO ONE (01:51)
[2017-05-15] MEDS ORDERED: LIDOCAINE 2% VISCOUS SOLN 20 ML UDCUP PO ONE (01:51)
[2017-05-15] MEDS ORDERED: METOCLOPRAMIDE HCL ORAL SOLN 10 MG/10 ML UDCUP PO ONE (01:51)
[2017-05-15] MEDS ORDERED: MAG HYDROX/AL HYDROX/SIMETH SUSP 30 ML UDCUP PO ONE (01:51)
--- NOTE | 2017-05-15 01:54 | ER Document Report ---
ED General - General Chief Complaint: Nausea Stated Complaint: ABDOMINAL PAIN Time Seen by Provider: 05/15/17 01:38 Notes: Patient is a 31 year old male without past medical history who presents with epigastric abdominal pain with associated nausea but no vomiting. He states that his symptoms started over the course the past 1 hour and are very mild in nature. He is requesting a GI cocktail and discharge. Reports that he has had similar symptoms in the past secondary to stomach irritation. He has not tried anything for relief prior to arrival. He is uncertain what triggered his symptoms and nothing worsens on. He denies any focal areas of abdominal pain. No fever or constitutional symptoms. He has not seen his primary care doctor regarding today's concerns. TRAVEL OUTSIDE OF THE [place] IN LAST 30 DAYS: No - Related Data Allergies/Adverse Reactions: poison veronica extract [Poison Veronica Extract] Allergy (Verified 02/21/17 07:43) poison oak extract [Poison [place] Extract] Allergy (Verified 02/21/17 07:43) Past Medical History - General Information source: Patient - Social History Smoking Status: Current Every Day Smoker Frequency of alcohol use: None Drug Abuse: None Family History: Reviewed & Not Pertinent - Past Medical History Cardiac Medical History: Denies: Hx Coronary Artery Disease, Hx Hypertension, Hx Pulmonary Embolism Pulmonary Medical History: Reports: Hx Asthma, Hx Bronchitis, Hx COPD, Hx Pneumonia Denies: Hx Respiratory Failure, Hx Sleep Apnea, Hx Tuberculosis Endocrine Medical History: Denies: Hx Diabetes Mellitus Type 1, Hx Diabetes Mellitus Type 2 Renal/ Medical History: Denies: Hx Peritoneal Dialysis Malignancy Medical History: Denies Hx Lung Cancer Psychiatric Medical History: Reports: Hx Attention Deficit Hyperactivity Disorder Denies: Hx Anxiety, Hx Bipolar Disorder, Hx Depression, Hx Schizophrenia Past Surgical History: Reports: Hx Tonsillectomy. Denies: Hx Pacemaker - Immunizations Immunizations up to date: Yes Hx Diphtheria, Pertussis, Tetanus Vaccination: Yes Review of Systems - Review of Systems Notes: Constitutional: Negative for fever. HENT: Negative for sore throat. Eyes: Negative for visual changes. Cardiovascular: Negative for chest pain. Respiratory: Negative for shortness of breath. Gastrointestinal: Positive for abdominal pain and nausea Genitourinary: Negative for dysuria. Musculoskeletal: Negative for back pain. Skin: Negative for rash. Neurological: Negative for headaches, weakness or numbness. 10 point ROS negative except as marked above and in HPI. Physical Exam - Vital signs Vitals: Temp Pulse Resp BP Pulse Ox 98 F 68 18 136/80 H 98 05/15/17 00:08 05/15/17 00:08 05/15/17 00:08 05/15/17 00:08 05/15/17 00:08 Interpretation: Normal Notes: PHYSICAL EXAMINATION: GENERAL: Well-appearing, well-nourished and in no acute distress. HEAD: Atraumatic, normocephalic. EYES: Pupils equal round and reactive to light, extraocular movements intact, sclera anicteric, conjunctiva are normal. ENT: nares patent, oropharynx clear without exudates. Moist mucous membranes. NECK: Normal range of motion, supple without lymphadenopathy LUNGS: Breath sounds clear to auscultation bilaterally and equal. No wheezes rales or rhonchi. HEART: Regular rate and rhythm without murmurs ABDOMEN: Soft, nontender, normoactive bowel sounds. No guarding, no rebound. No masses appreciated. EXTREMITIES: Normal range of motion, no pitting or edema. No cyanosis. NEUROLOGICAL: No focal neurological deficits. Moves all extremities spontaneously and on command. PSYCH: Normal mood, normal affect. SKIN: Warm, Dry, normal turgor, no rashes or lesions noted. Course - Re-evaluation Re-evalutation: 05/15/17 01:52 Patient presents with epigastric abdominal pain with associated nausea. He states that he is here to get a GI cocktail. He has declined all laboratory assessments. His abdominal exam is benign without any focal areas of tenderness , rebound or guarding. He states he has had similar symptoms in the past with gastritis and would simply like medicine to treat the symptom. He has verbalized an understanding that we could be missing something more serious although I do think there is a low probability for this given his well appearance, normal vitals and benign abdominal exam. He has been given a GI cocktail, famotidine and a small amount of Zofran for home. At this time will discharge with return precautions and follow-up recommendations. Verbal discharge instructions given a the bedside and opportunity for questions given. Medication warnings reviewed. Patient is in agreement with this plan and has verbalized understanding of return precautions and the need for primary care follow-up in the next 24-72 hours. - Vital Signs Vital signs: Temp Pulse Resp BP Pulse Ox 98 F 68 18 136/80 H 98 05/15/17 00:08 05/15/17 00:08 05/15/17 00:08 05/15/17 00:08 05/15/17 00:08 Discharge - Discharge Clinical Impression: Nausea, Epigastric abdominal pain Condition: Good Disposition: HOME, SELF-CARE Additional Instructions: Your symptoms appear to be most consistent with stomach or upper intestinal irritation. Please begin taking famotidine 40 mg in the morning and 40 mg at night. This medicine can be purchased directly [id number]. You may also take medicine such as Pepto-Bismol or Tums to assist with your pain. Please return to emergency department immediately if you have worsening of your pain, shortness of breath, vomiting, become unable to exert yourself due to pain or difficulty breathing, you pass out, or have any pain that radiates into your arms, jaw, or back. Please also return if you have any additional symptoms that are concerning to you. As we have discussed, the most important thing is lifestyle changes. You need to avoid smoking, sodas, tea, coffee, alcohol, spicy foods, and acidic foods such as citrus fruits, tomato based products, berries, and most fruit juices.
[2017-05-15 03:00] VITALS: BP 130/84
== END 2017-05-15 03:03 | disposition home or self-care (01) ==
LOC: ER 23:55
DX: R10.13 Epigastric pain (principal); R11.0 Nausea; F17.200 Nicotine dependence, unspecified, uncomplicated; J44.9 Chronic obstructive pulmonary disease, unspecified; Z91.048 Other nonmedicinal substance allergy status
CPT/HCPCS: 99283; J3490

== ENCOUNTER 2017-05-18 04:01 | Emergency (ER) | payer OTHER ==
[2017-05-18 04:08] VITALS: BP 145/86
[2017-05-18] MEDS ORDERED: KETOROLAC TROMETHAMINE INJ/PF 30 MG/1 ML SDV IM ONE (05:12)
--- NOTE | 2017-05-18 05:29 | ER Document Report ---
HPI - HPI Pain Level: 5 Notes: Patient is a 31-year-old male with no significant past medical history who presents to the ED requesting an anti-inflammatory medication for his occasional headache and body aches but these were had today. Patient states that he does not care what medicine it is and that is his only reason for coming. He does not want any lab work or imaging performed. Patient is currently homeless and has repeated visits to the emergency department for similar complaints, but mostly so he can try to sleep as noted in previous visits. Patient states that he is currently asymptomatic, but would like some medicine on board so that his symptoms did not return. He has no other concerns or complaints at this time. Denies any current headache, fever, head injury, neck pain, changes in vision/speech/mentation/hearing, URI, sore throat , chest pain, palpitations, syncope, cough, shortness of breath, wheeze, dyspnea , abdominal pain, nausea/vomiting/diarrhea, urinary retention, dysuria, hematuria, loss of control of bowel or bladder, numbness/tingling, saddle anesthesia, muscle paralysis/weakness, or rash. - ROS Systems Reviewed and Negative: Yes All other systems reviewed and negative Past Medical History - Social History Smoking Status: Unknown if Ever Smoked Family History: Reviewed & Not Pertinent - Past Medical History Cardiac Medical History: Denies: Hx Coronary Artery Disease, Hx Hypertension, Hx Pulmonary Embolism Pulmonary Medical History: Reports: Hx Asthma, Hx Bronchitis, Hx COPD, Hx Pneumonia Denies: Hx Respiratory Failure, Hx Sleep Apnea, Hx Tuberculosis Endocrine Medical History: Denies: Hx Diabetes Mellitus Type 1, Hx Diabetes Mellitus Type 2 Renal/ Medical History: Denies: Hx Peritoneal Dialysis Malignancy Medical History: Denies Hx Lung Cancer Psychiatric Medical History: Reports: Hx Attention Deficit Hyperactivity Disorder Denies: Hx Anxiety, Hx Bipolar Disorder, Hx Depression, Hx Schizophrenia Past Surgical History: Reports: Hx Tonsillectomy. Denies: Hx Pacemaker - Immunizations Immunizations up to date: Yes Hx Diphtheria, Pertussis, Tetanus Vaccination: Yes Vertical Provider Document - CONSTITUTIONAL Agree With Documented VS: Yes Notes: PHYSICAL EXAMINATION: GENERAL: Well-appearing, well-nourished and in no acute distress. A&Ox4. Answers questions appropriately. HEAD: Atraumatic, normocephalic. EYES: Pupils equal round and reactive to light, extraocular movements intact, sclera anicteric, conjunctiva are normal. ENT: Nares patent and without discharge. oropharynx clear without exudates. No tonsilar hypertrophy or erythema. Moist mucous membranes. NECK: Normal range of motion, supple without lymphadenopathy LUNGS: Breath sounds clear to auscultation bilaterally and equal. No wheezes rales or rhonchi. HEART: Regular rate and rhythm without murmurs, rubs, gallops. Musculoskeletal: FROM to passive/active. Strength 5+/5. Extremities: No cyanosis, clubbing, or edema b/l. Peripheral pulses 2+. Capillary refill less than 3 seconds. NEUROLOGICAL: Cranial nerves grossly intact. Normal speech, normal gait. Normal sensory, motor exams PSYCH: Normal mood, normal affect. SKIN: Warm, Dry, normal turgor, no rashes or lesions noted. - INFECTION CONTROL TRAVEL OUTSIDE OF THE [place] IN LAST 30 DAYS: No Course - Re-evaluation Re-evalutation: 05/18/17 05:26 Patient is an afebrile, well-hydrated, 31-year-old male who presents to the ED with a worried well visit as he is asymptomatic. Vitals are acceptable. PE is otherwise unremarkable for any focal neurological deficits. Toradol was given IM today per his preference when medications were reviewed. Patient states that Toradol works the best for him overall. He is tolerating p.o. without any difficulties. No labs or imaging warranted at this time based on H&P. Patient has repeated visits emergency department for similar complaints and concerns as he is homeless and historically has returned so that he can sleep. Low suspicion for any acute systemic emergent condition at this time. Conservative measures for symptoms with close monitoring. Recheck with/establish with PCM in 3-5 days. Return to the ED with any worsening/concerning symptoms otherwise as reviewed discharge. Patient is in agreement. - Vital Signs Vital signs: Temp Pulse Resp BP Pulse Ox 97.8 F 72 14 145/86 H 99 05/18/17 04:07 05/18/17 04:07 05/18/17 04:07 05/18/17 04:07 05/18/17 04:07 Discharge - Discharge Clinical Impression: Worried well Condition: Stable Disposition: HOME, SELF-CARE Additional Instructions: Rest, Ice, Compression, Elevation Tylenol/ibuprofen as needed Light stretches daily Strength exercises as able Moist heat and massage may help F/u with your PCP in 3-5 days for a recheck Consider consult(s) with Orthopedics/physical therapy for ongoing/worsening symptoms Return to the ED with any worsening symptoms and/or development of fever, headache, chest pain, palpitations, syncope, shortness of breath, trouble breathing, abdominal pain, n/v/d, muscle weakness/paralysis, numbness/tingling, or other worsening symptoms that are concerning to you. Forms: Elevated Blood Pressure, Smoking Cessation Education Referrals: [facility] [Provider Group] - Follow up as needed
== END 2017-05-18 05:45 | disposition home or self-care (01) ==
LOC: ER 04:01
DX: Z71.1 Person with feared health complaint in whom no diagnosis is made (principal); R51 Headache; M79.1 Myalgia; Z59.0 Homelessness
CPT/HCPCS: 99281

== ENCOUNTER 2017-05-21 23:23 | Emergency (ER) | payer OTHER ==
[2017-05-21 23:37] VITALS: BP 126/69
== END 2017-05-22 00:26 | disposition left against medical advice (07) ==
LOC: ER 23:23
DX: Z53.21 Procedure and treatment not carried out due to patient leaving prior to being seen by health care provider (principal)